=== PATIENT | male | born 1960 | race American Indian/Alaskan Native ===

== ENCOUNTER 2017-03-22 13:16 | Inpatient (IN) | payer MEDICARE, MEDICAID ==
[2017-03-22 13:17] VITALS: BMI 25.8
[2017-03-22] MEDS ORDERED: Piperacillin/Tazobact 3.375 gm 100 ML IVPB STA (13:32)
--- NOTE | 2017-03-22 13:42 | C.PDOC ---
History Of Present Illness 57 y/o male hx HTN, DVT, PE on coumadin sent to ED from senior living for evaluation of worsening cellulitis. Pt states he has had this "for some time." Denies fever, chest pain, SOB or any other complaints. Time Seen by Provider: 03/22/17 13:22 Chief Complaint (Nursing): Lower Extremity Problem/Injury History Per: Patient History/Exam Limitations: no limitations Onset/Duration Of Symptoms: Days Current Symptoms Are (Timing): Still Present Severity: Moderate Recent travel outside of the [place]: No Past Medical History Reviewed: Historical Data, Nursing Documentation, Vital Signs Vital Signs: Last Vital Signs Temp 98.1 F 03/22/17 13:24 Pulse 90 03/22/17 13:24 Resp 14 03/22/17 13:24 BP 124/72 03/22/17 13:24 Pulse Ox 97 03/22/17 13:24 - Medical History PMH: Anemia, Arthritis, Depression, Deep Vein Thrombosis, Fibromyalgia, Osteoporosis, Peripheral Edema, Pulmonary Embolism, Rheumatoid Arthritis [facility]INFUSE [facility] (05/01/14) INSERTION OF INFUSION DEV INTO SUP VENA CAVA, PERC APPROACH (07/05/16) Family History: States: Unknown Family Hx - Social History Hx Tobacco Use: Yes Hx Alcohol Use: No Hx Substance Use: No - Immunization History Hx Tetanus Toxoid Vaccination: Yes Hx Influenza Vaccination: Yes Hx Pneumococcal Vaccination: Yes Review Of Systems Except As Marked, All Systems Reviewed And Found Negative. Constitutional: Negative for: Fever Cardiovascular: Negative for: Chest Pain Respiratory: Negative for: Shortness of Breath Skin: Positive for: Other (lower leg cellulitis) Physical Exam - Physical Exam Appears: Non-toxic, No Acute Distress Skin: Warm, No Rash Head: Atraumatic, Normacephalic Chest: Symmetrical Cardiovascular: Rhythm Regular, No Murmur Respiratory: Normal Breath Sounds, No Rales, No Rhonchi, No Wheezing Gastrointestinal/Abdominal: Normal Exam, Soft, No Tenderness Extremity: Normal ROM, Swelling (+4 edema bilateral lower legs with multiple purulent draining ulcers) Neurological/Psych: Oriented x3, Normal Speech, Normal Cognition ED Course And Treatment - Laboratory Results Result Diagrams: 03/22/17 14:11 03/22/17 14:11 Medical Decision Making Medical Decision Making: lower leg cellultisinfected leg ulcers, will need iv antibiotics, and admission , as pt not improving in senior living Disposition - Disposition Disposition: HOSPITALIZED Disposition Time: 16:28 Condition: FAIR - Clinical Impression Clinical Impression: Cellulitis, Bilateral leg ulcer, Elevated INR - Scribe Statement The provider has reviewed the documentation as recorded by the Sheryl Nichols Provider Attestation: All medical record entries made by the Sheryl were at my direction and personally dictated by me. I have reviewed the chart and agree that the record accurately reflects my personal performance of the history, physical exam, medical decision making, and the department course for this patient. I have also personally directed, reviewed, and agree with the discharge instructions and disposition. Decision To Admit - Pt Status Changed To: Hospital Disposition Of: Inpatient - Admit Certification Admit to Inpatient:: After my assessment, the patient will require hospitalization for at least two midnights. This is because of the severity of symptoms shown, intensity of services needed, and/or the medical risk in this patient being treated as an outpatient. - InPatient: Physician Admission Certification: I certify that this patient requires 2 or more midnights of care for the following reason:: pt will need iv antibiotics for infected leg ulcers, not improving in nurshing home - . Bed Request Type: Regular Admitting Physician: Ced Markham Patient Diagnosis: Cellulitis, Bilateral leg ulcer, Elevated INR
[2017-03-22 14:18] LABS: BASO % 0.4 % (0.0-2.0); EOS % 0.2 % (0.0-4.0); HEMATOCRIT 30.9 % (35.0-51.0); LYMPH # 0.4 K/uL (1.0-4.3); LYMPH % 6.5 % (20.0-40.0); MEAN CORPUSCULAR HEMOGLOBIN 28.2 pg (27.0-31.0); MEAN CORPUSCULAR HGB CONC 32.8 g/dL (33.0-37.0); MEAN PLATELET VOLUME 7.9 fL (7.2-11.7); MONO # 0.4 K/uL (0.0-0.8); MONO % 5.5 % (0.0-10.0); NRBC % 0.1 % (0.0-2.0); PLATELET COUNT 304 K/uL (130-400); RED CELL DISTRIBUTION WIDTH 16.8 % (11.5-14.5); WHITE BLOOD COUNT 6.9 K/uL (4.8-10.8)
[2017-03-22 14:24] LABS: INR 3.2
[2017-03-22 14:25] LABS: CHLORIDE 94 mmol/L (98-107)
[2017-03-22 14:26] LABS: POTASSIUM 4.1 mmol/L (3.6-5.2); SODIUM 137 mmol/L (132-148)
[2017-03-22 14:28] LABS: ALB/GLOB RATIO 0.8 (1.0-2.1); BILIRUBIN,TOTAL 0.7 mg/dL (0.2-1.3); CARBON DIOXIDE 28 mmol/L (22-30); GFR AFRICAN-AMERICAN > 60; TOTAL PROTEIN 7.8 g/dL (6.3-8.3)
[2017-03-22 14:29] LABS: ALKALINE PHOSPHATASE 76 U/L (38-126); ALT/SGPT 28 U/L (21-72); AST/SGOT 24 U/L (17-59); BLOOD UREA NITROGEN 14 mg/dL (9-20); CALCIUM 8.5 mg/dl (8.6-10.4); GLUCOSE,RANDOM 133 mg/dL (75-110)
[2017-03-22 14:57] LABS: EOSINOPHIL 1 % (0-4); NEUTROPHIL 82 % (50-75); REACTIVE LYMPHOCYTES 1 % (0-0); TOTAL CELLS COUNTED 100
[2017-03-22] MEDS ORDERED: Piperacillin/Tazobact 3.375 gm 100 ML IVPB ONE (15:28)
[2017-03-22 16:32] LABS: RBC URINE 2 /hpf (0-3); URINE BILIRUBIN NEGATIVE (NEGATIVE); URINE BLOOD 2+ (NEGATIVE); URINE COLOR Yellow (YELLOW); URINE GLUCOSE (UA) NORMAL (Normal); URINE KETONE NEGATIVE (NEGATIVE); URINE LEUKOCYTE ESTERASE NEG Leu/uL (Negative); URINE PROTEIN NEGATIVE (NEGATIVE); WBC URINE 1 /hpf (0-5)
[2017-03-22] MEDS ORDERED: Vancomycin 1 GM 1 GM/250 ML BAG IVPB ONE (16:54)
[2017-03-22] MEDS: Piperacill/Tazo 3.375gm in Dex 3.375 GM/50 ML BAG IVPB SCH (18:32)
[2017-03-22] MEDS ORDERED: oxyCODONE 5 mg Immediate Release Tab ONE (19:50)
[2017-03-22] MEDS: oxyCODONE 10 mg Immediate Release Tab PO PRN (19:51)
[2017-03-22] MEDS ORDERED: Methadone 40 mg Tab PO SCH (22:00)
[2017-03-23] MEDS: Oxycodone/Acetaminophen 5/325 mg Tab PO PRN ×3 (00:30→15:09)
[2017-03-23] MEDS: Piperacill/Tazo 3.375gm in Dex 3.375 GM/50 ML BAG IVPB SCH ×4 (01:30→19:47)
[2017-03-23] MEDS: oxyCODONE 10 mg Immediate Release Tab PO PRN (04:10)
[2017-03-23] MEDS ORDERED: Home Med 1 UNIT (Vancomycin 1 Gm [Vancomycin 1gm In Normal Saline Addvantage] 1 GM) IVPB SCH (10:00)
[2017-03-23] MEDS: Multiple Vitamins Tab PO SCH (10:28)
[2017-03-23] MEDS ORDERED: oxyCODONE 10 mg Immediate Release Tab PO PRN (10:58)
--- NOTE | 2017-03-23 11:23 | CP.PCM.HP ---
History of Present Illness - History of Present Illness History of Present Illness: 57 years old male patient with past medical history of anemia, depression, DVT, fibromyalgia, osteoporosis, pulmonary embolism on Coumadin, rheumatoid arthritis , was referred [facility] from [facility] for evaluation of the worsening lower limb cellulitis. No fever, nausea, vomiting No chest pain, palpitation, syncope, dyspnea Prior arterial duplex was normal Echo suggestive of normal ejection fraction Present on Admission - Present on Admission Any Indicators Present on Admission: No Past Patient History - Past Medical History & Family History Past Medical History?: Yes - Past Social History Smoking Status: Current Some Days Smoker - CARDIAC Hx Peripheral Edema: Yes - PULMONARY Hx Pulmonary Embolism: Yes - NEUROLOGICAL Hx Neurological Disorder: No - HEENT Hx HEENT Problems: No - RENAL Hx Chronic Kidney Disease: No - ENDOCRINE/METABOLIC Hx Endocrine Disorders: No - HEMATOLOGICAL/ONCOLOGICAL Hx Anemia: Yes - INTEGUMENTARY Hx Dermatological Problems: No - MUSCULOSKELETAL/RHEUMATOLOGICAL Hx Arthritis: Yes Hx Falls: No Hx Osteoporosis: Yes Hx Rheumatoid Arthritis: Yes - GASTROINTESTINAL Hx Gastrointestinal Disorders: Yes Hx Gastroesophageal Reflux: Yes - GENITOURINARY/GYNECOLOGICAL Hx Genitourinary Disorders: Yes Hx Incontinence: Yes - PSYCHIATRIC Hx Depression: Yes Hx Substance Use: No - SURGICAL HISTORY Hx Surgeries: No - ANESTHESIA Hx Anesthesia: No Hx Anesthesia Reactions: No Meds Home Medications: Home Medication List Medication Instructions Recorded Confirmed Type Cefepime IV 2 gm in NS [Maxipime 2 gm IVPB Q12 #1 bag 03/29/17 Rx 2gm] Enoxaparin [Lovenox] 80 mg SC Q12 syr 03/29/17 Rx Methadone 20 mg PO DAILY tab 03/29/17 Rx Methadone 20 mg PO DAILY@1400 tab 03/29/17 Rx Pantoprazole [Protonix EC Tab] 40 mg PO DAILY ect 03/29/17 Rx Vancomycin 1 gm/NS 200 ml 1 gm IVPB DAILY #1 bag 03/29/17 Rx [Vancocin] Allergies/Adverse Reactions: Allergies Allergy/AdvReac Type Severity Reaction Status Date / Time No Known Allergies Allergy Verified 03/22/17 13:28 Physical Exam - Constitutional Appears: Well - Head Exam Head Exam: ATRAUMATIC, NORMAL INSPECTION, NORMOCEPHALIC - Eye Exam Eye Exam: EOMI, Normal appearance, PERRL Pupil Exam: NORMAL ACCOMODATION, PERRL - ENT Exam ENT Exam: Mucous Membranes Moist, Normal Exam - Neck Exam Neck exam: Positive for: Normal Inspection - Respiratory Exam Respiratory Exam: Decreased Breath Sounds - Cardiovascular Exam Cardiovascular Exam: REGULAR RHYTHM, +S1, +S2 - GI/Abdominal Exam GI & Abdominal Exam: Diminished Bowel Sounds, Soft - Rectal Exam Rectal Exam: Deferred Results - Vital Signs Recent Vital Signs: Last Vital Signs Temp 98.5 F 03/23/17 08:00 Pulse 97 H 03/23/17 08:00 Resp 20 03/23/17 08:00 BP 125/90 03/23/17 08:00 Pulse Ox 92 L 03/23/17 08:00 - Labs Result Diagrams: 03/29/17 07:12 03/29/17 07:12 Labs: Laboratory Results - last 24 hr 03/22/17 16:17 Urine Color Yellow Urine Clarity Clear Urine pH 6.0 Ur Specific [place] 1.009 Urine Protein Negative Urine Glucose (UA) Normal Urine Ketones Negative Urine Blood 2+ H Urine Nitrate Negative Urine Bilirubin Negative Urine Urobilinogen 2.0 Ur Leukocyte Esterase Neg Urine WBC (Auto) 1 Urine RBC (Auto) 2 Ur Squamous Epith Cells 1 Assessment & Plan (1) Alcohol abuse Status: Acute (2) Alcohol dependence Status: Acute (3) Anemia Status: Acute (4) Bilateral leg ulcer Status: Acute (5) Cellulitis Status: Acute (6) Closed head injury Status: Acute (7) Elevated INR Status: Acute (8) Eyebrow laceration Status: Acute (9) Finger laceration Status: Acute (10) Joint pain Status: Acute (11) Nailbed laceration, finger Status: Acute (12) Open fracture of tuft of distal phalanx of finger Status: Acute (13) Pulmonary embolism, bilateral Status: Acute Priority: High (14) Recurrent falls Status: Acute (15) Stasis ulcer of left lower extremity Status: Acute (16) Arthritis Status: Chronic (17) COPD (chronic obstructive pulmonary disease) Status: Chronic Priority: Medium (18) Chronic pain Status: Chronic (19) Drug abuse and dependence Status: Chronic Priority: Medium (20) Rheumatoid arthritis flare Status: Chronic Priority: High - Assessment and Plan (Free Text) Plan: Labs and meds noted Cultures awaited IV antibiotics as advised Methadone Elavil ID consult Wound care Labs next a.m.
[2017-03-23 12:05] LABS: BASO # 0.1 K/uL (0.0-0.2); BASO % 1.2 % (0.0-2.0); EOS # 0.2 K/uL (0.0-0.7); LYMPH # 1.3 K/uL (1.0-4.3); LYMPH % 24.9 % (20.0-40.0); MEAN CELL VOLUME 85.9 fL (80.0-94.0); MEAN CORPUSCULAR HEMOGLOBIN 27.9 pg (27.0-31.0); MEAN CORPUSCULAR HGB CONC 32.4 g/dL (33.0-37.0); MEAN PLATELET VOLUME 7.8 fL (7.2-11.7); MONO # 0.6 K/uL (0.0-0.8); MONO % 12.6 % (0.0-10.0); NRBC % 0.2 % (0.0-2.0); RED CELL DISTRIBUTION WIDTH 16.6 % (11.5-14.5); WHITE BLOOD COUNT 5.1 K/uL (4.8-10.8)
[2017-03-23 12:19] LABS: CHLORIDE 92 mmol/L (98-107); POTASSIUM 3.4 mmol/L (3.6-5.2); SODIUM 142 mmol/L (132-148)
[2017-03-23 12:21] LABS: GFR AFRICAN-AMERICAN > 60
[2017-03-23 12:22] LABS: ALB/GLOB RATIO 0.8 (1.0-2.1); ALKALINE PHOSPHATASE 80 U/L (38-126); ALT/SGPT 26 U/L (21-72); AST/SGOT 19 U/L (17-59); BILIRUBIN,TOTAL 0.7 mg/dL (0.2-1.3); BLOOD UREA NITROGEN 9 mg/dL (9-20); CALCIUM 8.8 mg/dl (8.6-10.4); CARBON DIOXIDE 34 mmol/L (22-30); GLUCOSE,RANDOM 103 mg/dL (75-110); TOTAL PROTEIN 7.9 g/dL (6.3-8.3)
--- NOTE | 2017-03-23 12:38 | CP.PCM.CON ---
History of Present Illness - History of Present Illness History of Present Illness: 57 y/o male hx HTN, DVT, PE on coumadin sent to ED from [facility] for evaluation of worsening cellulitis. Pt states he has had this "for some time." Denies fever, chest pain, has bilateral stasis ulcers and cellulitis right greater than Left IV antibiotics started cultures pending - Medical History PMH: Anemia, Arthritis, Depression, Deep Vein Thrombosis, Fibromyalgia, Osteoporosis, Peripheral Edema, Pulmonary Embolism, Rheumatoid Arthritis Review of Systems - Constitutional Constitutional: As Per HPI - EENT Eyes: absent: As Per HPI, Blind Spots, Blurred Vision, Change in Vision, Decreased Night Vision, Diplopia, Discharge, Dry Eye, Exophthalmos, Floaters, Irritation, Itchy Eyes, Loss of Peripheral Vision, Pain, Photophobia, Requires Corrective Lenses, Sees Flashes, Spots in Vision, Tunnel Vision, Other Visual Disturbances, Loss of Vision, Other Ears: absent: As Per HPI, Decreased Hearing, Ear Discharge, Ear Pain, Tinnitus, Abnormal Hearing, Disequilibrium, Dizziness, Other Nose/Mouth/Throat: absent: As Per HPI, Epistaxis, Nasal Congestion, Nasal Discharge, Nasal Obstruction, Nasal Trauma, Nose Pain, Post Nasal Drip, Sinus Pain, Sinus Pressure, Bleeding Gums, Change in Voice, Dental Pain, Dry Mouth, Dysphagia, Halitosis, Hoarsness, Lip Swelling, Mouth Lesions, Mouth Pain, Odynophagia, Sore Throat, Throat Swelling, Tongue Swelling, Facial Pain, Neck Pain, Neck Mass, Other - Cardiovascular Cardiovascular: absent: As Per HPI, Acrocyanosis, Chest Pain, Chest Pain at Rest , Chest Pain with Activity, Claudication, Diaphoresis, Dyspnea, Dyspnea on Exertion, Edema, Irregular Heart Rhythm, Pain Radiating to Arm/Neck/Jaw, Leg Edema, Leg Ulcers, Lightheadedness, Orthopnea, Palpitations, Paroxysmal Nocturnal Dyspnea, Pedal Edema, Radiating Pain, Rapid Heart Rate, Slow Heart Rate, Syncope, Other - Respiratory Respiratory: absent: As Per HPI, Cough, Dyspnea, Hemoptysis, Dyspnea on Exertion , Wheezing, Snoring, Stridor, Pain on Inspiration, Chest Congestion, Excessive Mucous Production, Change in Mucous Color, Pain with Coughing, Other - Gastrointestinal Gastrointestinal: absent: As Per HPI, Abdominal Pain, Belching, Bloating, Change in Bowel Habits, Change in Stool Character, Coffee Ground Emesis, Constipation, Cramping, Diarrhea, Dyspepsia, Dysphagia, Early Satiety, Excessive Flatus, Fecal Incontinence, Heartburn, Hematemesis, Hematochezia, Loose Stools, Melena, Nausea, Odynophagia, Temesmus, Vomiting, Other - Genitourinary Genitourinary: absent: As Per HPI, Change in Urinary Stream, Difficulty Urinating, Dysuria, Flank Pain, Hematuria, Pyuria, Nocturia, Urinary Incontinence, Urinary Frequency, Urinary Hesitance, Urinary Urgency, Voiding Freq/Small Amts, Freq UTI, Hx Renal/Bladder Calculi, Hx /Renal Surgery, Bladder Distension, Other - Musculoskeletal Musculoskeletal: As Per HPI - Integumentary Integumentary: As Per HPI, Skin Pain, Wounds - Neurological Neurological: absent: As Per HPI, Abnormal Gait, Abnormal Hearing, Abnormal Movements, Abnormal Speech, Behavioral Changes, Burning Sensations, Confusion, Convulsions, Disequilibrium, Dizziness, Numbness, Focal Weakness, Frequent Falls , Headaches, Lack of Coordination, Loss of Vision, Memory Loss, Paresthesias, Radicular Pain, Restless Legs, Sensory Deficit, Syncope, Tingling, Tremor, Vertigo, Weakness, Other Visual Disturbances, Other - Psychiatric Psychiatric: absent: As Per HPI, Abnormal Sleep Pattern, Anhedonia, Anxiety, Auditory Hallucinations, Behavioral Changes, Change in Appetite, Change in Libido, Confusion, Depression, Difficulty Concentrating, Hallucinations, Homicidal Ideation, Hopelessness, Irritability, Memory Loss, Mood Swings, Panic Attacks, Paranoia, Suicidal Ideation, Visual Hallucinations, Tactile Hallucinations, Other - Endocrine Endocrine: absent: As Per HPI, Change in Body Appearance, Change in Libido, Cold Intolorance, Deepening of Voice, Excessive Sweating, Fatigue, Flushing, Heat Intolorance, Increase in Ring/Shoe/Hat Size, Palpitations, Polydipsia, Polyphagia, Polyuria, Other Past Patient History - Past Medical History & Family History Past Medical History?: Yes - Past Social History Smoking Status: Current Some Days Smoker - CARDIAC Hx Peripheral Edema: Yes - PULMONARY Hx Pulmonary Embolism: Yes - NEUROLOGICAL Hx Neurological Disorder: No - HEENT Hx HEENT Problems: No - RENAL Hx Chronic Kidney Disease: No - ENDOCRINE/METABOLIC Hx Endocrine Disorders: No - HEMATOLOGICAL/ONCOLOGICAL Hx Anemia: Yes - INTEGUMENTARY Hx Dermatological Problems: No - MUSCULOSKELETAL/RHEUMATOLOGICAL Hx Arthritis: Yes Hx Falls: No Hx Osteoporosis: Yes Hx Rheumatoid Arthritis: Yes - GASTROINTESTINAL Hx Gastrointestinal Disorders: Yes Hx Gastroesophageal Reflux: Yes - GENITOURINARY/GYNECOLOGICAL Hx Genitourinary Disorders: Yes Hx Incontinence: Yes - PSYCHIATRIC Hx Depression: Yes Hx Substance Use: No - SURGICAL HISTORY Hx Surgeries: No - ANESTHESIA Hx Anesthesia: No Hx Anesthesia Reactions: No Meds Allergies/Adverse Reactions: Allergies Allergy/AdvReac Type Severity Reaction Status Date / Time No Known Allergies Allergy Verified 03/22/17 13:28 - Medications Medications: Current Medications Amitriptyline HCl (Elavil) 100 mg PO DAILY [facility] Last Admin: 03/23/17 10:28 Dose: 100 mg Cyclobenzaprine HCl (Flexeril) 10 mg PO Q8 [facility] Gabapentin (Neurontin) 300 mg PO TID [facility] Last Admin: 03/23/17 10:28 Dose: 300 mg Piperacillin Sod/Tazobactam Sod (Zosyn 3.375 Gm Iv Premix) 3.375 gm in 50 mls @ 100 mls/hr IVPB Q6H [facility] Last Admin: 03/23/17 08:44 Dose: 100 mls/hr Vancomycin/Sodium Chloride (Vancocin) 1 gm in 200 mls @ 133 mls/hr IVPB Q24H [facility] Stop: 03/28/17 17:01 Methadone HCl (Methadone) 20 mg PO 1400 [facility] Methadone HCl (Methadone) 30 mg PO 0600 [facility] Last Admin: 03/23/17 05:31 Dose: 30 mg Methadone HCl (Methadone) 30 mg PO 2200 [facility] Last Admin: 03/22/17 21:58 Dose: 30 mg Multivitamins (Hexavitamin) 1 tab PO DAILY [facility] Last Admin: 03/23/17 10:28 Dose: 1 tab Oxycodone HCl (Oxycodone Immediate Release Tab) 10 mg PO Q8 PRN PRN Reason: Pain, severe (8-10) Oxycodone/Acetaminophen (Percocet 5/325 Mg Tab) 1 tab PO Q6 PRN PRN Reason: Pain, moderate (4-7) Stop: 03/26/17 11:00 Prednisone (Prednisone Tab) 10 mg PO DAILY [facility] Last Admin: 03/23/17 10:28 Dose: 10 mg Venlafaxine HCl (Effexor Xr) 37.5 mg PO DAILY [facility] Warfarin Sodium (Coumadin) 3.5 mg PO DAILY [facility] Physical Exam - Constitutional Appears: Non-toxic, Chronically Ill - Head Exam Head Exam: ATRAUMATIC, NORMAL INSPECTION, NORMOCEPHALIC - Eye Exam Eye Exam: EOMI, PERRL. absent: Scleral icterus - ENT Exam ENT Exam: Mucous Membranes Dry, Normal External Ear Exam - Neck Exam Neck exam: Negative for: Lymphadenopathy, Thyromegaly - Respiratory Exam Respiratory Exam: Decreased Breath Sounds, Clear to Auscultation Bilateral - Cardiovascular Exam Cardiovascular Exam: REGULAR RHYTHM, +S1, +S2 - GI/Abdominal Exam GI & Abdominal Exam: Diminished Bowel Sounds, Soft. absent: Tenderness - Rectal Exam Rectal Exam: Deferred - Exam Exam: NORMAL INSPECTION - Extremities Exam Extremities exam: Positive for: pedal edema, tenderness. Negative for: calf tenderness, pedal pulses present - Back Exam Back exam: absent: CVA tenderness (L), CVA tenderness (R), paraspinal tenderness - Neurological Exam Neurological exam: Alert, CN II-XII Intact, Oriented x3, Reflexes Normal - Psychiatric Exam Psychiatric exam: Normal Mood - Skin Skin Exam: Dry Results - Vital Signs Recent Vital Signs: Last Vital Signs Temp 98.5 F 03/23/17 08:00 Pulse 97 H 03/23/17 08:00 Resp 20 03/23/17 08:00 BP 125/90 03/23/17 08:00 Pulse Ox 92 L 03/23/17 08:00 - Labs Result Diagrams: 03/23/17 11:56 03/23/17 11:56 Labs: Laboratory Results - last 24 hr 03/22/17 03/23/17 03/23/17 16:17 11:56 11:56 WBC 5.1 RBC 3.96 L Hgb 11.0 L Hct 34.0 L MCV 85.9 MCH 27.9 MCHC 32.4 L RDW 16.6 H Plt Count 366 MPV 7.8 Neut % (Auto) 58.3 Lymph % (Auto) 24.9 [place] % (Auto) 12.6 H Eos % (Auto) 3.0 Baso % (Auto) 1.2 Neut # 3.0 Lymph # 1.3 [place] # 0.6 Eos # 0.2 Baso # 0.1 Sodium 142 Potassium 3.4 L Chloride 92 L Carbon Dioxide 34 H Anion Gap 19 BUN 9 Creatinine 0.8 Est GFR ( Amer) > 60 Est GFR (Non-Af Amer) > 60 Random Glucose 103 Calcium 8.8 Total Bilirubin 0.7 AST 19 ALT 26 Alkaline Phosphatase 80 Total Protein 7.9 Albumin 3.5 Globulin 4.3 H Albumin/Globulin Ratio 0.8 L Urine Color Yellow Urine Clarity Clear Urine pH 6.0 Ur Specific [place] 1.009 Urine Protein Negative Urine Glucose (UA) Normal Urine Ketones Negative Urine Blood 2+ H Urine Nitrate Negative Urine Bilirubin Negative Urine Urobilinogen 2.0 Ur Leukocyte Esterase Neg Urine WBC (Auto) 1 Urine RBC (Auto) 2 Ur Squamous Epith Cells 1 Assessment & Plan (1) Bilateral leg ulcer Status: Acute (2) Cellulitis Status: Acute (3) Stasis ulcer of left lower extremity Status: Acute - Assessment and Plan (Free Text) Assessment: await cultures cont iv antibiotics
[2017-03-23] MEDS: Venlafaxine 37.5 mg ER Cap PO SCH (12:59)
--- NOTE | 2017-03-23 13:12 | CP.PCM.PN ---
Subjective - Date & Time of Evaluation Date of Evaluation: 03/23/17 Time of Evaluation: 09:45 - Subjective Subjective: PGY3 Medicine Note - Dr. Rocio Markham's service: Patient seen and examined at bedside this AM. Patient reports severe body pain from arthritis all over his body. Patient says his legs look much better and feel much better. Patient denies fever, chills, chest pain, SOB. Objective - Vital Signs/Intake and Output Vital Signs (last 24 hours): Temp Pulse Resp BP Pulse Ox 98.5 F 97 H 20 125/90 92 L 03/23/17 08:00 03/23/17 08:00 03/23/17 08:00 03/23/17 08:00 03/23/17 08:00 Intake and Output: 03/23/17 03/23/17 06:59 18:59 Intake Total 290 Output Total 400 Balance -110 - Medications Medications: Current Medications Amitriptyline HCl (Elavil) 100 mg PO DAILY [facility] Last Admin: 03/23/17 10:28 Dose: 100 mg Cyclobenzaprine HCl (Flexeril) 10 mg PO Q8 [facility] Gabapentin (Neurontin) 300 mg PO TID [facility] Last Admin: 03/23/17 10:28 Dose: 300 mg Piperacillin Sod/Tazobactam Sod (Zosyn 3.375 Gm Iv Premix) 3.375 gm in 50 mls @ 100 mls/hr IVPB Q6H [facility] Last Admin: 03/23/17 08:44 Dose: 100 mls/hr Vancomycin/Sodium Chloride (Vancocin) 1 gm in 200 mls @ 133 mls/hr IVPB Q24H [facility] Stop: 03/28/17 17:01 Methadone HCl (Methadone) 20 mg PO 1400 [facility] Methadone HCl (Methadone) 30 mg PO 0600 [facility] Last Admin: 03/23/17 05:31 Dose: 30 mg Methadone HCl (Methadone) 30 mg PO 2200 [facility] Last Admin: 03/22/17 21:58 Dose: 30 mg Multivitamins (Hexavitamin) 1 tab PO DAILY [facility] Last Admin: 03/23/17 10:28 Dose: 1 tab Oxycodone/Acetaminophen (Percocet 5/325 Mg Tab) 1 tab PO Q6 PRN PRN Reason: Pain, moderate (4-7) Stop: 03/26/17 11:00 Prednisone (Prednisone Tab) 10 mg PO DAILY [facility] Last Admin: 03/23/17 10:28 Dose: 10 mg Venlafaxine HCl (Effexor Xr) 37.5 mg PO DAILY [facility] Warfarin Sodium (Coumadin) 3.5 mg PO DAILY [facility] - Labs Labs: 03/23/17 11:56 03/23/17 11:56 PT 38.0 SECONDS (9.7-12.2) H* 03/22/17 14:11 INR 3.2 03/22/17 14:11 APTT 42 SECONDS (21-34) H 03/22/17 14:11 - Constitutional Appears: Non-toxic, No Acute Distress - Head Exam Head Exam: NORMAL INSPECTION - Eye Exam Eye Exam: EOMI - ENT Exam ENT Exam: Mucous Membranes Moist - Respiratory Exam Respiratory Exam: Clear to Ausculation Bilateral, NORMAL BREATHING PATTERN. absent: Rales, Rhonchi, Wheezes - Cardiovascular Exam Cardiovascular Exam: REGULAR RHYTHM, +S1, +S2. absent: Gallop, Rubs, Murmur - GI/Abdominal Exam GI & Abdominal Exam: Soft, Normal Bowel Sounds. absent: Tenderness - Extremities Exam Additional comments: b/l leg swelling with ulcers wrapped in white gauze - Neurological Exam Neurological Exam: Alert, Awake, Oriented x3 - Psychiatric Exam Psychiatric exam: Normal Affect, Normal Mood - Skin Skin Exam: Normal Color, Warm Assessment and Plan - Assessment and Plan (Free Text) Assessment: Cellulitis Wound care consult - help appreciated ID consult - Dr. Oliver - help appreciated F/U blood culture and wound culture F/U arterial duplex scan Zosyn 3.375mg IVPB Q6H Vancomycin 1gm IVPB Q24H [facility] Cardio consult - Dr. Arnett - help appreciated History of PE Continue Warfarin 3.5mg PO daily F/U INRs Arthritis Oxycodone/Acetaminophen 5/325mg PO Q6H PRN pain, moderate Prednisone 10mg PO daily Methadone 20mg PO 1400 Methadone 30mg PO 0600 Methadone 30mg PO 2200 [facility] Elavil 100mg PO daily Gabapentin 300mg PO TID Prophylaxis Lovenox 40mg SC daily Protonix 40mg PO daily All management per Dr. Rocio Markham
[2017-03-23] MEDS ORDERED: Potassium Chloride 20 mEq ER Tab PO STA (15:22)
[2017-03-23] MEDS: Vancomycin 1 gm/NS 200 ml 1 GM/200 ML BAG IVPB SCH (17:54)
--- NOTE | 2017-03-23 22:49 | CP.PCM.CON ---
History of Present Illness - History of Present Illness History of Present Illness: Patient seen and evaluated Consulted for foot ulcer Patient denies hx of chest pain, dyspnea and leg claudication Prior Arterial duplex normal ECHO: Normal EF Most likely venous ulcer (H/O DVT on coumadin) Past Patient History - Past Medical History & Family History Past Medical History?: Yes - Past Social History Smoking Status: Current Some Days Smoker - CARDIAC Hx Peripheral Edema: Yes - PULMONARY Hx Pulmonary Embolism: Yes - NEUROLOGICAL Hx Neurological Disorder: No - HEENT Hx HEENT Problems: No - RENAL Hx Chronic Kidney Disease: No - ENDOCRINE/METABOLIC Hx Endocrine Disorders: No - HEMATOLOGICAL/ONCOLOGICAL Hx Anemia: Yes - INTEGUMENTARY Hx Dermatological Problems: No - MUSCULOSKELETAL/RHEUMATOLOGICAL Hx Arthritis: Yes Hx Falls: No Hx Osteoporosis: Yes Hx Rheumatoid Arthritis: Yes - GASTROINTESTINAL Hx Gastrointestinal Disorders: Yes Hx Gastroesophageal Reflux: Yes - GENITOURINARY/GYNECOLOGICAL Hx Genitourinary Disorders: Yes Hx Incontinence: Yes - PSYCHIATRIC Hx Depression: Yes Hx Substance Use: No - SURGICAL HISTORY Hx Surgeries: No - ANESTHESIA Hx Anesthesia: No Hx Anesthesia Reactions: No Meds Allergies/Adverse Reactions: Allergies Allergy/AdvReac Type Severity Reaction Status Date / Time No Known Allergies Allergy Verified 03/22/17 13:28 - Medications Medications: Current Medications Amitriptyline HCl (Elavil) 100 mg PO DAILY [facility] Last Admin: 03/23/17 10:28 Dose: 100 mg Cyclobenzaprine HCl (Flexeril) 10 mg PO Q8 [facility] Last Admin: 03/23/17 21:24 Dose: 10 mg Gabapentin (Neurontin) 300 mg PO TID [facility] Last Admin: 03/23/17 17:46 Dose: 300 mg Piperacillin Sod/Tazobactam Sod (Zosyn 3.375 Gm Iv Premix) 3.375 gm in 50 mls @ 100 mls/hr IVPB Q6H [facility] Last Admin: 03/23/17 19:47 Dose: 100 mls/hr Vancomycin/Sodium Chloride (Vancocin) 1 gm in 200 mls @ 133 mls/hr IVPB Q24H [facility] Stop: 03/28/17 17:01 Last Admin: 03/23/17 17:54 Dose: 133 mls/hr Methadone HCl (Methadone) 20 mg PO 1400 [facility] Last Admin: 03/23/17 13:03 Dose: 20 mg Methadone HCl (Methadone) 30 mg PO 0600 [facility] Last Admin: 03/23/17 05:31 Dose: 30 mg Methadone HCl (Methadone) 30 mg PO 2200 [facility] Last Admin: 03/23/17 21:25 Dose: 30 mg Multivitamins (Hexavitamin) 1 tab PO DAILY [facility] Last Admin: 03/23/17 10:28 Dose: 1 tab Oxycodone/Acetaminophen (Percocet 5/325 Mg Tab) 1 tab PO Q6 PRN PRN Reason: Pain, moderate (4-7) Stop: 03/26/17 11:00 Last Admin: 03/23/17 15:09 Dose: 1 tab Pantoprazole Sodium (Protonix Ec Tab) 40 mg PO DAILY [facility] Prednisone (Prednisone Tab) 10 mg PO DAILY [facility] Last Admin: 03/23/17 10:28 Dose: 10 mg Venlafaxine HCl (Effexor Xr) 37.5 mg PO DAILY [facility] Last Admin: 03/23/17 12:59 Dose: 37.5 mg Results - Vital Signs Recent Vital Signs: Last Vital Signs Temp 98.0 F 03/23/17 15:00 Pulse 100 H 03/23/17 15:00 Resp 20 03/23/17 15:00 BP 132/82 03/23/17 15:00 Pulse Ox 95 03/23/17 15:00 - Labs Result Diagrams: 03/23/17 11:56 03/23/17 11:56 Labs: Laboratory Results - last 24 hr 03/23/17 03/23/17 11:56 11:56 WBC 5.1 RBC 3.96 L Hgb 11.0 L Hct 34.0 L MCV 85.9 MCH 27.9 MCHC 32.4 L RDW 16.6 H Plt Count 366 MPV 7.8 Neut % (Auto) 58.3 Lymph % (Auto) 24.9 Payne % (Auto) 12.6 H Eos % (Auto) 3.0 Baso % (Auto) 1.2 Neut # 3.0 Lymph # 1.3 Payne # 0.6 Eos # 0.2 Baso # 0.1 Sodium 142 Potassium 3.4 L Chloride 92 L Carbon Dioxide 34 H Anion Gap 19 BUN 9 Creatinine 0.8 Est GFR ( Amer) > 60 Est GFR (Non-Af Amer) > 60 Random Glucose 103 Calcium 8.8 Total Bilirubin 0.7 AST 19 ALT 26 Alkaline Phosphatase 80 Total Protein 7.9 Albumin 3.5 Globulin 4.3 H Albumin/Globulin Ratio 0.8 L
[2017-03-24] MEDS: Piperacill/Tazo 3.375gm in Dex 3.375 GM/50 ML BAG IVPB SCH ×4 (01:45→20:22)
[2017-03-24] MEDS: Oxycodone/Acetaminophen 5/325 mg Tab PO PRN ×2 (02:18→22:01)
[2017-03-24 07:17] LABS: BASO # 0.1 K/uL (0.0-0.2); BASO % 0.9 % (0.0-2.0); EOS # 0.1 K/uL (0.0-0.7); EOS % 2.2 % (0.0-4.0); LYMPH # 1.7 K/uL (1.0-4.3); LYMPH % 28.5 % (20.0-40.0); MEAN CELL VOLUME 85.1 fL (80.0-94.0); MEAN CORPUSCULAR HEMOGLOBIN 27.9 pg (27.0-31.0); MEAN CORPUSCULAR HGB CONC 32.7 g/dL (33.0-37.0); MEAN PLATELET VOLUME 7.7 fL (7.2-11.7); MONO # 0.6 K/uL (0.0-0.8); MONO % 9.6 % (0.0-10.0); RED CELL DISTRIBUTION WIDTH 16.7 % (11.5-14.5); WHITE BLOOD COUNT 6.1 K/uL (4.8-10.8)
[2017-03-24 07:20] LABS: INR 3.9
[2017-03-24 07:27] LABS: CHLORIDE 96 mmol/L (98-107); SODIUM 140 mmol/L (132-148)
[2017-03-24 07:28] LABS: POTASSIUM 3.5 mmol/L (3.6-5.2)
[2017-03-24 07:30] LABS: ALB/GLOB RATIO 0.8 (1.0-2.1); ALKALINE PHOSPHATASE 82 U/L (38-126); ALT/SGPT 26 U/L (21-72); AST/SGOT 17 U/L (17-59); BILIRUBIN,TOTAL 0.5 mg/dL (0.2-1.3); BLOOD UREA NITROGEN 9 mg/dL (9-20); CARBON DIOXIDE 30 mmol/L (22-30); GFR AFRICAN-AMERICAN > 60; GLUCOSE,RANDOM 96 mg/dL (75-110); TOTAL PROTEIN 7.9 g/dL (6.3-8.3)
[2017-03-24 07:31] LABS: CALCIUM 8.4 mg/dl (8.6-10.4)
[2017-03-24] MEDS ORDERED: Potassium Chloride 20 mEq ER Tab PO STA (09:40)
[2017-03-24] MEDS: Multiple Vitamins Tab PO SCH (09:53)
[2017-03-24] MEDS: Pantoprazole 40 mg EC Tab PO SCH (09:53)
[2017-03-24] MEDS: Venlafaxine 37.5 mg ER Cap PO SCH (09:53)
--- NOTE | 2017-03-24 14:57 | VASCLAB ---
PROCEDURE: HISTORY: pvd COMPARISON: None available. TECHNIQUE: Grayscale and duplex Doppler evaluation of the bilateral common femoral, femoral, profunda femoral, popliteal, posterior tibial, anterior tibial and dorsalis pedis arteries was performed. Report prepared by VALDEZ Morales, RVT FINDINGS: RIGHT LOWER EXTREMITY: * Common Femoral Artery: Peak Systolic Velocity - 110: Doppler Waveform: Triphasic.: Plaque description - * Profunda Femoral Artery: Peak Systolic Velocity - 77: Doppler Waveform: Triphasic.: Plaque description - * Femoral Artery o Proximal Segment: Peak Systolic Velocity - 132: Doppler Waveform: Triphasic.: Plaque description - o Middle Segment: Peak Systolic Velocity - 126: Doppler Waveform: Triphasic.: Plaque description - o Distal Segment: Peak Systolic Velocity - 94: Doppler Waveform: Triphasic.: Plaque description - * Popliteal Artery o Proximal Segment: Peak Systolic Velocity - 68: Doppler Waveform: Triphasic.: Plaque description - o Middle Segment: Peak Systolic Velocity - 76: Doppler Waveform: Triphasic.: Plaque description - o Distal Segment: Peak Systolic Velocity - 102: Doppler Waveform: Triphasic.: Plaque description - * Posterior Tibial Artery: Peak Systolic Velocity - : Doppler Waveform: : Plaque description - * Anterior Tibial Artery: Peak Systolic Velocity - 69: Doppler Waveform: Triphasic.: Plaque description - * Dorsalis Pedis Artery: Peak Systolic Velocity - : Doppler Waveform: : Plaque description - LEFT LOWER EXTREMITY: * Common Femoral Artery: Peak Systolic Velocity - 156: Doppler Waveform: Triphasic.: Plaque description - * Profunda Femoral Artery: Peak Systolic Velocity - : Doppler Waveform: : Plaque description - * Femoral Artery o Proximal Segment: Peak Systolic Velocity - 135: Doppler Waveform: Triphasic.: Plaque description - o Middle Segment: Peak Systolic Velocity - 72: Doppler Waveform: Triphasic.: Plaque description - o Distal Segment: Peak Systolic Velocity - 216: Doppler Waveform: Triphasic.: Plaque description - * Popliteal Artery o Proximal Segment: Peak Systolic Velocity - 115: Doppler Waveform: Triphasic.: Plaque description - o Middle Segment: Peak Systolic Velocity - 96: Doppler Waveform: Triphasic.: Plaque description - o Distal Segment: Peak Systolic Velocity - 106: Doppler Waveform: Triphasic.: Plaque description - * Posterior Tibial Artery: Peak Systolic Velocity - : Doppler Waveform: : Plaque description - * Anterior Tibial Artery: Peak Systolic Velocity - 106: Doppler Waveform: Triphasic.: Plaque description - * Dorsalis Pedis Artery: Peak Systolic Velocity - : Doppler Waveform: : Plaque description - OTHER FINDINGS: Unable to image bilateral posterior tibial and dorsalis pedis arteries due to severe swelling and bandage on legs. IMPRESSION: RIGHT: There is no evidence of hemodynamically significant arterial insufficiency in both lower extremities. LEFT: 50-75% stenosis of the left distal superficial femoral artery. Recommend CT angiogram.
--- NOTE | 2017-03-24 16:14 | CP.PCM.PN ---
Subjective - Date & Time of Evaluation Date of Evaluation: 03/24/17 Time of Evaluation: 16:11 - Subjective Subjective: PGY2 progress note for Dr. Markham Pt is seen and examined at bedside. No acute events overnight. Patient continues to c/o LE pain. Patient denies having any CP, SOB, abd pain, N/V/D/ C. patient is tolerating diet. 12 point ROS are negative except for the above mentioned. Objective - Vital Signs/Intake and Output Vital Signs (last 24 hours): Temp Pulse Resp BP Pulse Ox 98.1 F 78 20 125/84 96 03/24/17 07:51 03/24/17 07:51 03/24/17 07:51 03/24/17 07:51 03/24/17 07:51 Intake and Output: 03/24/17 03/24/17 06:59 18:59 Intake Total 300 460 Output Total 650 550 Balance -350 -90 - Medications Medications: Current Medications Amitriptyline HCl (Elavil) 100 mg PO DAILY [facility] Last Admin: 03/24/17 09:53 Dose: 100 mg Cyclobenzaprine HCl (Flexeril) 10 mg PO Q8 [facility] Last Admin: 03/24/17 13:24 Dose: 10 mg Gabapentin (Neurontin) 300 mg PO TID [facility] Last Admin: 03/24/17 13:24 Dose: 300 mg Piperacillin Sod/Tazobactam Sod (Zosyn 3.375 Gm Iv Premix) 3.375 gm in 50 mls @ 100 mls/hr IVPB Q6H [facility] Last Admin: 03/24/17 13:24 Dose: 100 mls/hr Vancomycin/Sodium Chloride (Vancocin) 1 gm in 200 mls @ 133 mls/hr IVPB Q24H [facility] Stop: 03/28/17 17:01 Last Admin: 03/23/17 17:54 Dose: 133 mls/hr Methadone HCl (Methadone) 20 mg PO 1400 [facility] Last Admin: 03/24/17 13:24 Dose: 20 mg Methadone HCl (Methadone) 30 mg PO 0600 [facility] Last Admin: 03/24/17 06:20 Dose: 30 mg Methadone HCl (Methadone) 30 mg PO 2200 [facility] Last Admin: 03/23/17 21:25 Dose: 30 mg Multivitamins (Hexavitamin) 1 tab PO DAILY [facility] Last Admin: 03/24/17 09:53 Dose: 1 tab Oxycodone/Acetaminophen (Percocet 5/325 Mg Tab) 1 tab PO Q6 PRN PRN Reason: Pain, moderate (4-7) Stop: 03/26/17 11:00 Last Admin: 03/24/17 02:18 Dose: 1 tab Pantoprazole Sodium (Protonix Ec Tab) 40 mg PO DAILY [facility] Last Admin: 03/24/17 09:53 Dose: 40 mg Prednisone (Prednisone Tab) 10 mg PO DAILY [facility] Last Admin: 03/24/17 09:53 Dose: 10 mg Venlafaxine HCl (Effexor Xr) 37.5 mg PO DAILY [facility] Last Admin: 03/24/17 09:53 Dose: 37.5 mg - Labs Labs: 03/24/17 07:01 03/24/17 07:01 PT 46.2 SECONDS (9.7-12.2) H* D 03/24/17 07:01 INR 3.9 03/24/17 07:01 APTT 42 SECONDS (21-34) H 03/22/17 14:11 - Constitutional Appears: Non-toxic, No Acute Distress - Head Exam Head Exam: ATRAUMATIC - Eye Exam Eye Exam: EOMI - ENT Exam ENT Exam: Mucous Membranes Moist - Respiratory Exam Respiratory Exam: Clear to Ausculation Bilateral, NORMAL BREATHING PATTERN. absent: Accessory Muscle Use, Rales, Rhonchi, Wheezes, Respiratory Distress - Cardiovascular Exam Cardiovascular Exam: REGULAR RHYTHM, +S1, +S2. absent: Gallop, Rubs, Murmur - GI/Abdominal Exam GI & Abdominal Exam: Soft, Normal Bowel Sounds. absent: Distended, Firm, Guarding, Rigid, Tenderness, Organomegaly - Extremities Exam Extremities Exam: absent: Pedal Edema, Tenderness - Neurological Exam Neurological Exam: Alert, Awake, Oriented x3 - Psychiatric Exam Psychiatric exam: Normal Affect, Normal Mood - Skin Skin Exam: Dry, Intact, Normal Color, Warm Assessment and Plan - Assessment and Plan (Free Text) Assessment: 57 year old male with past medical history of HTN, DVT, PE on coumadin, fibromyalgia, OA, and RA is admitted for worsening cellulitis of LE Cellulitis Wound care consult - help appreciated ID consult - Dr. Oliver - help appreciated Wound cultures grew gram negative maddison, gram positive cocci Arterial duplex scan shows left side 50-75% stenosis of left distal superficial femoral artery Zosyn 3.375mg IVPB Q6H Vancomycin 1gm IVPB Q24H [facility] Cardio consult - Dr. Arnett - help appreciated Cardio recommends pharmacological stress test in am, echo in am and CTA of abdominal aorta and LE B/L NPO past midnight except for medications History of PE INR today is 3.9. Will hold warfarin for tonight and resume on 3 mg tomorrow night Arthritis Oxycodone/Acetaminophen 5/325mg PO Q6H PRN pain, moderate Prednisone 10mg PO daily Methadone 20mg PO 1400 Methadone 30mg PO 0600 Methadone 30mg PO 2200 [facility] Elavil 100mg PO daily Gabapentin 300mg PO TID Prophylaxis Lovenox 40mg SC daily Protonix 40mg PO daily All management per Dr. Rocio Markham
[2017-03-24] MEDS: Vancomycin 1 gm/NS 200 ml 1 GM/200 ML BAG IVPB SCH (17:33)
--- NOTE | 2017-03-24 17:39 | CP.PCM.PN ---
Subjective - Date & Time of Evaluation Date of Evaluation: 03/24/17 Time of Evaluation: 10:00 - Subjective Subjective: clinically same Objective - Vital Signs/Intake and Output Vital Signs (last 24 hours): Temp Pulse Resp BP Pulse Ox 98.1 F 78 20 125/84 96 03/24/17 07:51 03/24/17 07:51 03/24/17 07:51 03/24/17 07:51 03/24/17 07:51 Intake and Output: 03/24/17 03/24/17 06:59 18:59 Intake Total 300 460 Output Total 650 550 Balance -350 -90 - Medications Medications: Current Medications Amitriptyline HCl (Elavil) 100 mg PO DAILY [facility] Last Admin: 03/24/17 09:53 Dose: 100 mg Cyclobenzaprine HCl (Flexeril) 10 mg PO Q8 [facility] Last Admin: 03/24/17 13:24 Dose: 10 mg Gabapentin (Neurontin) 300 mg PO TID [facility] Last Admin: 03/24/17 17:33 Dose: 300 mg Piperacillin Sod/Tazobactam Sod (Zosyn 3.375 Gm Iv Premix) 3.375 gm in 50 mls @ 100 mls/hr IVPB Q6H [facility] Last Admin: 03/24/17 13:24 Dose: 100 mls/hr Vancomycin/Sodium Chloride (Vancocin) 1 gm in 200 mls @ 133 mls/hr IVPB Q24H [facility] Stop: 03/28/17 17:01 Last Admin: 03/24/17 17:33 Dose: 133 mls/hr Methadone HCl (Methadone) 20 mg PO 1400 [facility] Last Admin: 03/24/17 13:24 Dose: 20 mg Methadone HCl (Methadone) 30 mg PO 0600 [facility] Last Admin: 03/24/17 06:20 Dose: 30 mg Methadone HCl (Methadone) 30 mg PO 2200 [facility] Last Admin: 03/23/17 21:25 Dose: 30 mg Multivitamins (Hexavitamin) 1 tab PO DAILY [facility] Last Admin: 03/24/17 09:53 Dose: 1 tab Oxycodone/Acetaminophen (Percocet 5/325 Mg Tab) 1 tab PO Q6 PRN PRN Reason: Pain, moderate (4-7) Stop: 03/26/17 11:00 Last Admin: 03/24/17 02:18 Dose: 1 tab Pantoprazole Sodium (Protonix Ec Tab) 40 mg PO DAILY [facility] Last Admin: 03/24/17 09:53 Dose: 40 mg Prednisone (Prednisone Tab) 10 mg PO DAILY [facility] Last Admin: 03/24/17 09:53 Dose: 10 mg Venlafaxine HCl (Effexor Xr) 37.5 mg PO DAILY [facility] Last Admin: 03/24/17 09:53 Dose: 37.5 mg - Labs Labs: 03/24/17 07:01 03/24/17 07:01 PT 46.2 SECONDS (9.7-12.2) H* D 03/24/17 07:01 INR 3.9 03/24/17 07:01 APTT 42 SECONDS (21-34) H 03/22/17 14:11 - Constitutional Appears: Well - Head Exam Head Exam: ATRAUMATIC, NORMAL INSPECTION, NORMOCEPHALIC - Eye Exam Eye Exam: EOMI, Normal appearance, PERRL Pupil Exam: NORMAL ACCOMODATION, PERRL - ENT Exam ENT Exam: Mucous Membranes Moist, Normal Exam - Neck Exam Neck Exam: Full ROM, Normal Inspection. absent: Lymphadenopathy - Respiratory Exam Respiratory Exam: Decreased Breath Sounds - Cardiovascular Exam Cardiovascular Exam: REGULAR RHYTHM, +S1, +S2 - GI/Abdominal Exam GI & Abdominal Exam: Soft, Diminished Bowel Sounds - Rectal Exam Rectal Exam: Deferred Assessment and Plan (1) Alcohol abuse Status: Acute (2) Alcohol dependence Status: Acute (3) Anemia Status: Acute (4) Bilateral leg ulcer Status: Acute (5) Cellulitis Status: Acute (6) Closed head injury Status: Acute (7) Elevated INR Status: Acute (8) Eyebrow laceration Status: Acute (9) Finger laceration Status: Acute (10) Joint pain Status: Acute (11) Nailbed laceration, finger Status: Acute (12) Open fracture of tuft of distal phalanx of finger Status: Acute (13) Pulmonary embolism, bilateral Status: Acute (14) Recurrent falls Status: Acute (15) Stasis ulcer of left lower extremity Status: Acute (16) Arthritis Status: Chronic (17) COPD (chronic obstructive pulmonary disease) Status: Chronic (18) Chronic pain Status: Chronic (19) Drug abuse and dependence Status: Chronic (20) Rheumatoid arthritis flare Status: Chronic - Assessment and Plan (Free Text) Plan: Continue same Zosyn Vancomycin Methadone Percocet ID on board Prednisone Dr. Arnett
--- NOTE | 2017-03-24 18:40 | CP.PCM.PN ---
Subjective - Date & Time of Evaluation Date of Evaluation: 03/24/17 Time of Evaluation: 07:00 - Subjective Subjective: severely infected ulcers right foot worse may need debridement Objective - Vital Signs/Intake and Output Vital Signs (last 24 hours): Temp Pulse Resp BP Pulse Ox 98.1 F 78 20 125/84 96 03/24/17 07:51 03/24/17 07:51 03/24/17 07:51 03/24/17 07:51 03/24/17 07:51 Intake and Output: 03/24/17 03/24/17 06:59 18:59 Intake Total 300 460 Output Total 650 550 Balance -350 -90 - Medications Medications: Current Medications Amitriptyline HCl (Elavil) 100 mg PO DAILY [facility] Last Admin: 03/24/17 09:53 Dose: 100 mg Cyclobenzaprine HCl (Flexeril) 10 mg PO Q8 [facility] Last Admin: 03/24/17 13:24 Dose: 10 mg Gabapentin (Neurontin) 300 mg PO TID [facility] Last Admin: 03/24/17 17:33 Dose: 300 mg Piperacillin Sod/Tazobactam Sod (Zosyn 3.375 Gm Iv Premix) 3.375 gm in 50 mls @ 100 mls/hr IVPB Q6H [facility] Last Admin: 03/24/17 13:24 Dose: 100 mls/hr Vancomycin/Sodium Chloride (Vancocin) 1 gm in 200 mls @ 133 mls/hr IVPB Q24H [facility] Stop: 03/28/17 17:01 Last Admin: 03/24/17 17:33 Dose: 133 mls/hr Methadone HCl (Methadone) 20 mg PO 1400 [facility] Last Admin: 03/24/17 13:24 Dose: 20 mg Methadone HCl (Methadone) 30 mg PO 0600 [facility] Last Admin: 03/24/17 06:20 Dose: 30 mg Methadone HCl (Methadone) 30 mg PO 2200 [facility] Last Admin: 03/23/17 21:25 Dose: 30 mg Multivitamins (Hexavitamin) 1 tab PO DAILY [facility] Last Admin: 03/24/17 09:53 Dose: 1 tab Oxycodone/Acetaminophen (Percocet 5/325 Mg Tab) 1 tab PO Q6 PRN PRN Reason: Pain, moderate (4-7) Stop: 03/26/17 11:00 Last Admin: 03/24/17 02:18 Dose: 1 tab Pantoprazole Sodium (Protonix Ec Tab) 40 mg PO DAILY [facility] Last Admin: 03/24/17 09:53 Dose: 40 mg Prednisone (Prednisone Tab) 10 mg PO DAILY [facility] Last Admin: 03/24/17 09:53 Dose: 10 mg Venlafaxine HCl (Effexor Xr) 37.5 mg PO DAILY [facility] Last Admin: 03/24/17 09:53 Dose: 37.5 mg - Labs Labs: 03/24/17 07:01 03/24/17 07:01 PT 46.2 SECONDS (9.7-12.2) H* D 03/24/17 07:01 INR 3.9 03/24/17 07:01 APTT 42 SECONDS (21-34) H 03/22/17 14:11 - Constitutional Appears: Non-toxic, Chronically Ill - Head Exam Head Exam: NORMOCEPHALIC - Eye Exam Eye Exam: PERRL. absent: Scleral icterus - ENT Exam ENT Exam: Mucous Membranes Dry - Neck Exam Neck Exam: absent: Lymphadenopathy - Respiratory Exam Respiratory Exam: Decreased Breath Sounds, Clear to Ausculation Bilateral - Cardiovascular Exam Cardiovascular Exam: REGULAR RHYTHM - GI/Abdominal Exam GI & Abdominal Exam: Distended, Soft - Rectal Exam Rectal Exam: Deferred - Exam Exam: NORMAL INSPECTION Assessment and Plan (1) Bilateral leg ulcer Status: Acute (2) Cellulitis Status: Acute (3) Stasis ulcer of left lower extremity Status: Acute
--- NOTE | 2017-03-24 22:21 | CP.PCM.PN ---
Subjective - Date & Time of Evaluation Date of Evaluation: 03/24/17 Time of Evaluation: 17:25 - Subjective Subjective: Patient seen and evaluated Duplex positive for PAD Will check CTA Objective - Vital Signs/Intake and Output Vital Signs (last 24 hours): Temp Pulse Resp BP Pulse Ox 97.2 F L 96 H 20 122/73 95 03/24/17 16:00 03/24/17 16:00 03/24/17 16:00 03/24/17 16:00 03/24/17 16:00 Intake and Output: 03/24/17 03/25/17 18:59 06:59 Intake Total 460 Output Total 550 Balance -90 - Medications Medications: Current Medications Amitriptyline HCl (Elavil) 100 mg PO DAILY [facility] Last Admin: 03/24/17 09:53 Dose: 100 mg Cyclobenzaprine HCl (Flexeril) 10 mg PO Q8 [facility] Last Admin: 03/24/17 21:57 Dose: 10 mg Gabapentin (Neurontin) 300 mg PO TID [facility] Last Admin: 03/24/17 17:33 Dose: 300 mg Piperacillin Sod/Tazobactam Sod (Zosyn 3.375 Gm Iv Premix) 3.375 gm in 50 mls @ 100 mls/hr IVPB Q6H [facility] Last Admin: 03/24/17 20:22 Dose: 100 mls/hr Vancomycin/Sodium Chloride (Vancocin) 1 gm in 200 mls @ 133 mls/hr IVPB Q24H [facility] Stop: 03/28/17 17:01 Last Admin: 03/24/17 17:33 Dose: 133 mls/hr Methadone HCl (Methadone) 20 mg PO 1400 [facility] Last Admin: 03/24/17 13:24 Dose: 20 mg Methadone HCl (Methadone) 30 mg PO 0600 [facility] Last Admin: 03/24/17 06:20 Dose: 30 mg Methadone HCl (Methadone) 30 mg PO 2200 [facility] Last Admin: 03/24/17 21:57 Dose: 30 mg Multivitamins (Hexavitamin) 1 tab PO DAILY [facility] Last Admin: 03/24/17 09:53 Dose: 1 tab Oxycodone/Acetaminophen (Percocet 5/325 Mg Tab) 1 tab PO Q6 PRN PRN Reason: Pain, moderate (4-7) Stop: 03/26/17 11:00 Last Admin: 03/24/17 22:01 Dose: 1 tab Pantoprazole Sodium (Protonix Ec Tab) 40 mg PO DAILY [facility] Last Admin: 03/24/17 09:53 Dose: 40 mg Prednisone (Prednisone Tab) 10 mg PO DAILY [facility] Last Admin: 03/24/17 09:53 Dose: 10 mg Venlafaxine HCl (Effexor Xr) 37.5 mg PO DAILY [facility] Last Admin: 03/24/17 09:53 Dose: 37.5 mg - Labs Labs: 03/24/17 07:01 03/24/17 07:01 PT 46.2 SECONDS (9.7-12.2) H* D 03/24/17 07:01 INR 3.9 03/24/17 07:01 APTT 42 SECONDS (21-34) H 03/22/17 14:11
[2017-03-25] MEDS: Piperacill/Tazo 3.375gm in Dex 3.375 GM/50 ML BAG IVPB SCH ×3 (01:03→18:54)
[2017-03-25 06:44] LABS: INR 3.4
[2017-03-25 07:16] LABS: CHLORIDE 98 mmol/L (98-107)
[2017-03-25 07:17] LABS: POTASSIUM 3.5 mmol/L (3.6-5.2); SODIUM 142 mmol/L (132-148)
[2017-03-25 07:19] LABS: ALB/GLOB RATIO 0.9 (1.0-2.1); ALKALINE PHOSPHATASE 70 U/L (38-126); AST/SGOT 19 U/L (17-59); BILIRUBIN,TOTAL 0.5 mg/dL (0.2-1.3); BLOOD UREA NITROGEN 10 mg/dL (9-20); CARBON DIOXIDE 30 mmol/L (22-30); GFR AFRICAN-AMERICAN > 60; GLUCOSE,RANDOM 85 mg/dL (75-110); TOTAL PROTEIN 7.4 g/dL (6.3-8.3)
[2017-03-25 07:20] LABS: ALT/SGPT 21 U/L (21-72); CALCIUM 8.6 mg/dl (8.6-10.4)
[2017-03-25] MEDS ORDERED: Iodixanol 320 mg/ml 150 ml Bottle IV ONE (07:28)
[2017-03-25] MEDS ORDERED: Aminophylline 25 mg/ml Inj ONE (08:16)
--- NOTE | 2017-03-25 10:02 | CP.PCM.CON ---
History of Present Illness - History of Present Illness History of Present Illness: Palliative consult Requested by Emma Markham MD Reason: emotional support and symptoms management Patient is a 7 yo [place] resident, admitted with worsening cellulites of LEs. The Doppler of LEs upon admission was significant for 50-75 % stenosis of left femoral artery. ID consult was called for right foot infected ulcers and debridment was advised. Zosyn and Vanco IV initiated. PMH: HTN, DVT, PE on Coumadin, osteoporosis, fibromyligia, RA, periferal edema, chronic back and joints pain Soc. Hx: , [place] resident, Fam Hx: brother alive in good health, denies significant family Hx Review of Systems - Review of Systems All systems: reviewed and no additional remarkable complaints except - Constitutional Constitutional: Fatigue, Weakness - EENT Eyes: absent: As Per HPI, Blind Spots, Blurred Vision, Change in Vision, Decreased Night Vision, Diplopia, Discharge, Dry Eye, Exophthalmos, Floaters, Irritation, Itchy Eyes, Loss of Peripheral Vision, Pain, Photophobia, Requires Corrective Lenses, Sees Flashes, Spots in Vision, Tunnel Vision, Other Visual Disturbances, Loss of Vision, Other Ears: absent: As Per HPI, Decreased Hearing, Ear Discharge, Ear Pain, Tinnitus, Abnormal Hearing, Disequilibrium, Dizziness, Other Nose/Mouth/Throat: absent: As Per HPI, Epistaxis, Nasal Congestion, Nasal Discharge, Nasal Obstruction, Nasal Trauma, Nose Pain, Post Nasal Drip, Sinus Pain, Sinus Pressure, Bleeding Gums, Change in Voice, Dental Pain, Dry Mouth, Dysphagia, Halitosis, Hoarsness, Lip Swelling, Mouth Lesions, Mouth Pain, Odynophagia, Sore Throat, Throat Swelling, Tongue Swelling, Facial Pain, Neck Pain, Neck Mass, Other - Cardiovascular Cardiovascular: Leg Edema, Leg Ulcers, Pedal Edema - Respiratory Respiratory: absent: As Per HPI, Cough, Dyspnea, Hemoptysis, Dyspnea on Exertion , Wheezing, Snoring, Stridor, Pain on Inspiration, Chest Congestion, Excessive Mucous Production, Change in Mucous Color, Pain with Coughing, Other - Gastrointestinal Gastrointestinal: absent: As Per HPI, Abdominal Pain, Belching, Bloating, Change in Bowel Habits, Change in Stool Character, Coffee Ground Emesis, Constipation, Cramping, Diarrhea, Dyspepsia, Dysphagia, Early Satiety, Excessive Flatus, Fecal Incontinence, Heartburn, Hematemesis, Hematochezia, Loose Stools, Melena, Nausea, Odynophagia, Temesmus, Vomiting, Other - Genitourinary Genitourinary: absent: As Per HPI, Change in Urinary Stream, Difficulty Urinating, Dysuria, Flank Pain, Hematuria, Pyuria, Nocturia, Urinary Incontinence, Urinary Frequency, Urinary Hesitance, Urinary Urgency, Voiding Freq/Small Amts, Freq UTI, Hx Renal/Bladder Calculi, Hx /Renal Surgery, Bladder Distension, Other - Musculoskeletal Musculoskeletal: Abnormal Gait, Arthralgias, Back Pain, Deformity, Joint Swelling, Myalgias, Numbness, Stiffness, Tingling - Integumentary Integumentary: Skin Ulcer, Wounds - Neurological Neurological: absent: As Per HPI, Abnormal Gait, Abnormal Hearing, Abnormal Movements, Abnormal Speech, Behavioral Changes, Burning Sensations, Confusion, Convulsions, Disequilibrium, Dizziness, Numbness, Focal Weakness, Frequent Falls , Headaches, Lack of Coordination, Loss of Vision, Memory Loss, Paresthesias, Radicular Pain, Restless Legs, Sensory Deficit, Syncope, Tingling, Tremor, Vertigo, Weakness, Other Visual Disturbances, Other - Psychiatric Psychiatric: absent: As Per HPI, Abnormal Sleep Pattern, Anhedonia, Anxiety, Auditory Hallucinations, Behavioral Changes, Change in Appetite, Change in Libido, Confusion, Depression, Difficulty Concentrating, Hallucinations, Homicidal Ideation, Hopelessness, Irritability, Memory Loss, Mood Swings, Panic Attacks, Paranoia, Suicidal Ideation, Visual Hallucinations, Tactile Hallucinations, Other - Endocrine Endocrine: absent: As Per HPI, Change in Body Appearance, Change in Libido, Cold Intolorance, Deepening of Voice, Excessive Sweating, Fatigue, Flushing, Heat Intolorance, Increase in Ring/Shoe/Hat Size, Palpitations, Polydipsia, Polyphagia, Polyuria, Other - Hematologic/Lymphatic Hematologic: Easy Bleeding Past Patient History - Past Medical History & Family History Past Medical History?: Yes - Past Social History Smoking Status: Current Some Days Smoker - CARDIAC Hx Peripheral Edema: Yes - PULMONARY Hx Pulmonary Embolism: Yes - NEUROLOGICAL Hx Neurological Disorder: No - HEENT Hx HEENT Problems: No - RENAL Hx Chronic Kidney Disease: No - ENDOCRINE/METABOLIC Hx Endocrine Disorders: No - HEMATOLOGICAL/ONCOLOGICAL Hx Anemia: Yes - INTEGUMENTARY Hx Dermatological Problems: No - MUSCULOSKELETAL/RHEUMATOLOGICAL Hx Arthritis: Yes Hx Falls: No Hx Osteoporosis: Yes Hx Rheumatoid Arthritis: Yes - GASTROINTESTINAL Hx Gastrointestinal Disorders: Yes Hx Gastroesophageal Reflux: Yes - GENITOURINARY/GYNECOLOGICAL Hx Genitourinary Disorders: Yes Hx Incontinence: Yes - PSYCHIATRIC Hx Depression: Yes Hx Substance Use: No - SURGICAL HISTORY Hx Surgeries: No - ANESTHESIA Hx Anesthesia: No Hx Anesthesia Reactions: No Meds Allergies/Adverse Reactions: Allergies Allergy/AdvReac Type Severity Reaction Status Date / Time No Known Allergies Allergy Verified 03/22/17 13:28 - Medications Medications: Current Medications Amitriptyline HCl (Elavil) 100 mg PO DAILY [facility] Last Admin: 03/24/17 09:53 Dose: 100 mg Cyclobenzaprine HCl (Flexeril) 10 mg PO Q8 [facility] Last Admin: 03/25/17 07:55 Dose: Not Given Gabapentin (Neurontin) 300 mg PO TID [facility] Last Admin: 03/24/17 17:33 Dose: 300 mg Piperacillin Sod/Tazobactam Sod (Zosyn 3.375 Gm Iv Premix) 3.375 gm in 50 mls @ 100 mls/hr IVPB Q6H [facility] Last Admin: 03/25/17 01:03 Dose: 100 mls/hr Vancomycin/Sodium Chloride (Vancocin) 1 gm in 200 mls @ 133 mls/hr IVPB Q24H [facility] Stop: 03/28/17 17:01 Last Admin: 03/24/17 17:33 Dose: 133 mls/hr Methadone HCl (Methadone) 20 mg PO 1400 [facility] Last Admin: 03/24/17 13:24 Dose: 20 mg Methadone HCl (Methadone) 30 mg PO 0600 [facility] Last Admin: 03/25/17 07:56 Dose: Not Given Methadone HCl (Methadone) 30 mg PO 2200 [facility] Last Admin: 03/24/17 21:57 Dose: 30 mg Multivitamins (Hexavitamin) 1 tab PO DAILY [facility] Last Admin: 03/24/17 09:53 Dose: 1 tab Oxycodone/Acetaminophen (Percocet 5/325 Mg Tab) 1 tab PO Q6 PRN PRN Reason: Pain, moderate (4-7) Stop: 03/26/17 11:00 Last Admin: 03/24/17 22:01 Dose: 1 tab Pantoprazole Sodium (Protonix Ec Tab) 40 mg PO DAILY [facility] Last Admin: 03/24/17 09:53 Dose: 40 mg Prednisone (Prednisone Tab) 10 mg PO DAILY [facility] Last Admin: 03/24/17 09:53 Dose: 10 mg Venlafaxine HCl (Effexor Xr) 37.5 mg PO DAILY [facility] Last Admin: 03/24/17 09:53 Dose: 37.5 mg Physical Exam - Constitutional Appears: Chronically Ill - Head Exam Head Exam: ATRAUMATIC, NORMAL INSPECTION, NORMOCEPHALIC - Eye Exam Eye Exam: Normal appearance Pupil Exam: NORMAL ACCOMODATION, PERRL - ENT Exam ENT Exam: Mucous Membranes Moist, Normal Exam - Neck Exam Neck exam: Positive for: Normal Inspection - Respiratory Exam Respiratory Exam: Clear to Auscultation Bilateral, NORMAL BREATHING PATTERN - Cardiovascular Exam Cardiovascular Exam: REGULAR RHYTHM, +S1, +S2 - GI/Abdominal Exam GI & Abdominal Exam: Normal Bowel Sounds, Soft - Rectal Exam Rectal Exam: Deferred - Extremities Exam Extremities exam: Positive for: pedal edema, tenderness - Back Exam Back exam: NORMAL INSPECTION - Neurological Exam Neurological exam: Alert, Oriented x3 - Psychiatric Exam Psychiatric exam: Normal Affect, Normal Mood - Skin Skin Exam: Mottled Results - Vital Signs Recent Vital Signs: Last Vital Signs Temp 97.7 F 03/25/17 08:44 Pulse 80 03/25/17 08:44 Resp 20 03/25/17 08:44 BP 135/85 03/25/17 08:44 Pulse Ox 100 03/25/17 08:44 - Labs Result Diagrams: 03/24/17 07:01 03/25/17 06:25 Labs: Laboratory Results - last 24 hr 03/25/17 03/25/17 06:25 06:25 PT 40.5 H* D INR 3.4 Sodium 142 Potassium 3.5 L Chloride 98 Carbon Dioxide 30 Anion Gap 18 BUN 10 Creatinine 0.8 Est GFR ( Amer) > 60 Est GFR (Non-Af Amer) > 60 Random Glucose 85 Calcium 8.6 Total Bilirubin 0.5 AST 19 ALT 21 Alkaline Phosphatase 70 Total Protein 7.4 Albumin 3.4 L Globulin 4.0 H Albumin/Globulin Ratio 0.9 L Assessment & Plan - Assessment and Plan (Free Text) Assessment: Palliative consult Code status Full Code, no advance directive on chart, PPS 30% I reviewed medical records, all diagnostic studies, examined and interviewed patient in the bed Patient is alert, oriented X 3, looking chronically ill and with painful joints. Patient is unable to ambulate. Patient was using a WC at the [place]. LEs are swollen, discolored. There is skin ulcer to right foot and oozing of yellow drainage from the area. Debility is very significant. Patient also reports that " each joint in his body hurts". Patient has been on long lasting pain management. Methadone on board for chronic pain management along with PRN meds. There is no sedation. As per ID consult, patient will need a IV Tx and most likely debridement of ulcerated area. WBC 6.1, Hb 10.8, PT 40.5, INR 3.4. BP135/85, HR 80, O2Sat 100%. All other systems reviewed and are negative. Impression * Chronic pain due to RA, osteoarthritis and fybromilagia * Physical debility * Limited mobility * Patient depends of care Suggestion * Pain management * Patient may need a PICC line for IV Tx, as it was quite difficult to insert HL yesterday * Would refer to vascular surgery for LEs ulcer and poor perfusion * Please provide WC for patient to enhance his independence Thank you very much for the consult.
[2017-03-25 11:30] LABS: BASO # 0.1 K/uL (0.0-0.2); EOS # 0.1 K/uL (0.0-0.7); EOS % 1.6 % (0.0-4.0); HEMATOCRIT 34.4 % (35.0-51.0); LYMPH # 1.7 K/uL (1.0-4.3); LYMPH % 22.6 % (20.0-40.0); MEAN CELL VOLUME 86.3 fL (80.0-94.0); MEAN CORPUSCULAR HEMOGLOBIN 27.9 pg (27.0-31.0); MEAN CORPUSCULAR HGB CONC 32.4 g/dL (33.0-37.0); MEAN PLATELET VOLUME 7.8 fL (7.2-11.7); MONO # 0.7 K/uL (0.0-0.8); MONO % 9.3 % (0.0-10.0); WHITE BLOOD COUNT 7.4 K/uL (4.8-10.8)
[2017-03-25] MEDS: Pantoprazole 40 mg EC Tab PO SCH (13:58)
[2017-03-25] MEDS: Multiple Vitamins Tab PO SCH (13:58)
[2017-03-25] MEDS: Venlafaxine 37.5 mg ER Cap PO SCH (13:59)
[2017-03-25] MEDS ORDERED: Potassium Chloride 20 mEq ER Tab PO ONE (14:00)
--- NOTE | 2017-03-25 15:33 | CARD ---
APPROVED REPORT EXAM: Two-dimensional and M-mode echocardiogram with Doppler and color Doppler. Other Information Quality : GoodRhythm : NSR INDICATION Pulmonary Embolism COPD CELLULITUS INFECTED LEG ULCERS, ALCOHOL ABUSE M-Mode DIMENSIONS RVDd1.72 (2.1-3.2cm)Left Atrium (MM)3.59 (2.5-4.0cm) IVSd0.90 (0.7-1.1cm)Aortic Root3.44 (2.2-3.7cm) LVDd6.48 (4.0-5.6cm)Aortic Cusp Exc.2.15 (1.5-2.0cm) PWd0.90 (0.7-1.1cm)FS (%) 18 % LVDs5.31 (2.0-3.8cm)LVEF (%)37 (>50%) Aortic Valve AoV Peak Ysjazpdo790.6cm/Michele Peak GR.7mmHg Mitral Valve MV E Kcrkxclb74.0cm/sMV A Ywlaixze99.4cm/sE/A ratio0.9 TDI E/Lateral E'0.0E/Medial E'0.0 Tricuspid Valve TR Peak Wovgiiqk257hi/sTR Peak Gr.[id number] LEFT VENTRICLE The Left Ventricle is mildly dilated. There is normal left ventricular wall thickness. The systolic function is mildly to moderately impaired. Transmitral Doppler flow pattern is abnormal. RIGHT VENTRICLE The right ventricle is normal size. ATRIA The left atrium size is normal. AORTIC VALVE The aortic valve is normal in structure. MITRAL VALVE The mitral valve is normal in structure. TRICUSPID VALVE There is trace to mild tricuspid regurgitation. <Conclusion> Mild to moderately reuced LV systolic dysfunction. Dilated LA. Mild TR. DIastolic dysfunction.
[2017-03-25] MEDS: Vancomycin 1 gm/NS 200 ml 1 GM/200 ML BAG IVPB SCH ×2 (17:00)
--- NOTE | 2017-03-25 19:26 | CP.PCM.PN ---
Subjective - Date & Time of Evaluation Date of Evaluation: 03/25/17 Time of Evaluation: 08:00 - Subjective Subjective: severely infected ulcers + pseudomonas IV rx in progress may need debridement Objective - Vital Signs/Intake and Output Vital Signs (last 24 hours): Temp Pulse Resp BP Pulse Ox 98.0 F 108 H 20 125/69 94 L 03/25/17 15:00 03/25/17 15:00 03/25/17 15:00 03/25/17 15:00 03/25/17 15:00 Intake and Output: 03/25/17 03/26/17 18:59 06:59 Intake Total 200 Output Total 900 Balance -700 - Medications Medications: Current Medications Amitriptyline HCl (Elavil) 100 mg PO DAILY [facility] Last Admin: 03/25/17 14:02 Dose: 100 mg Cyclobenzaprine HCl (Flexeril) 10 mg PO Q8 [facility] Last Admin: 03/25/17 14:04 Dose: 10 mg Gabapentin (Neurontin) 300 mg PO TID [facility] Last Admin: 03/25/17 18:00 Dose: 300 mg Vancomycin/Sodium Chloride (Vancocin) 1 gm in 200 mls @ 133 mls/hr IVPB Q24H [facility] Stop: 03/28/17 17:01 Last Admin: 03/25/17 17:00 Dose: 133 mls/hr Cefepime HCl (Maxipime Iv 2 Gm Premix) 2 gm in 100 mls @ 200 mls/hr IVPB Q12H [facility] Stop: 03/30/17 19:31 Methadone HCl (Methadone) 20 mg PO 1400 [facility] Last Admin: 03/25/17 13:58 Dose: 20 mg Methadone HCl (Methadone) 30 mg PO 0600 [facility] Last Admin: 03/25/17 07:56 Dose: Not Given Methadone HCl (Methadone) 30 mg PO 2200 [facility] Last Admin: 03/24/17 21:57 Dose: 30 mg Multivitamins (Hexavitamin) 1 tab PO DAILY [facility] Last Admin: 03/25/17 13:58 Dose: 1 tab Oxycodone/Acetaminophen (Percocet 5/325 Mg Tab) 1 tab PO Q6 PRN PRN Reason: Pain, moderate (4-7) Stop: 03/26/17 11:00 Last Admin: 03/24/17 22:01 Dose: 1 tab Pantoprazole Sodium (Protonix Ec Tab) 40 mg PO DAILY [facility] Last Admin: 03/25/17 13:58 Dose: 40 mg Prednisone (Prednisone Tab) 10 mg PO DAILY [facility] Last Admin: 03/25/17 13:59 Dose: 10 mg Venlafaxine HCl (Effexor Xr) 37.5 mg PO DAILY [facility] Last Admin: 03/25/17 13:59 Dose: 37.5 mg - Labs Labs: 03/25/17 11:25 03/25/17 06:25 PT 40.5 SECONDS (9.7-12.2) H* D 03/25/17 06:25 INR 3.4 03/25/17 06:25 APTT 42 SECONDS (21-34) H 03/22/17 14:11 - Constitutional Appears: Non-toxic, Chronically Ill - Head Exam Head Exam: NORMOCEPHALIC - Eye Exam Eye Exam: absent: Scleral icterus - ENT Exam ENT Exam: Normal External Ear Exam - Neck Exam Neck Exam: absent: Lymphadenopathy - Respiratory Exam Respiratory Exam: Decreased Breath Sounds, Clear to Ausculation Bilateral - Cardiovascular Exam Cardiovascular Exam: REGULAR RHYTHM - GI/Abdominal Exam GI & Abdominal Exam: Distended, Soft - Rectal Exam Rectal Exam: Deferred Assessment and Plan (1) Bilateral leg ulcer Status: Acute (2) Cellulitis Status: Acute (3) Stasis ulcer of left lower extremity Status: Acute
--- NOTE | 2017-03-25 20:15 | CP.PCM.PN ---
Subjective - Date & Time of Evaluation Date of Evaluation: 03/25/17 Time of Evaluation: 10:20 - Subjective Subjective: clinically same Objective - Vital Signs/Intake and Output Vital Signs (last 24 hours): Temp Pulse Resp BP Pulse Ox 98.0 F 108 H 20 125/69 94 L 03/25/17 15:00 03/25/17 15:00 03/25/17 15:00 03/25/17 15:00 03/25/17 15:00 Intake and Output: 03/25/17 03/26/17 18:59 06:59 Intake Total 200 Output Total 900 Balance -700 - Medications Medications: Current Medications Amitriptyline HCl (Elavil) 100 mg PO DAILY [facility] Last Admin: 03/25/17 14:02 Dose: 100 mg Cyclobenzaprine HCl (Flexeril) 10 mg PO Q8 [facility] Last Admin: 03/25/17 14:04 Dose: 10 mg Gabapentin (Neurontin) 300 mg PO TID [facility] Last Admin: 03/25/17 18:00 Dose: 300 mg Vancomycin/Sodium Chloride (Vancocin) 1 gm in 200 mls @ 133 mls/hr IVPB Q24H [facility] Stop: 03/28/17 17:01 Last Admin: 03/25/17 17:00 Dose: 133 mls/hr Cefepime HCl (Maxipime Iv 2 Gm Premix) 2 gm in 100 mls @ 200 mls/hr IVPB Q12H [facility] Stop: 03/30/17 21:01 Methadone HCl (Methadone) 20 mg PO 1400 [facility] Last Admin: 03/25/17 13:58 Dose: 20 mg Methadone HCl (Methadone) 30 mg PO 0600 [facility] Last Admin: 03/25/17 07:56 Dose: Not Given Methadone HCl (Methadone) 30 mg PO 2200 [facility] Last Admin: 03/24/17 21:57 Dose: 30 mg Multivitamins (Hexavitamin) 1 tab PO DAILY [facility] Last Admin: 03/25/17 13:58 Dose: 1 tab Oxycodone/Acetaminophen (Percocet 5/325 Mg Tab) 1 tab PO Q6 PRN PRN Reason: Pain, moderate (4-7) Stop: 03/26/17 11:00 Last Admin: 03/24/17 22:01 Dose: 1 tab Pantoprazole Sodium (Protonix Ec Tab) 40 mg PO DAILY [facility] Last Admin: 03/25/17 13:58 Dose: 40 mg Prednisone (Prednisone Tab) 10 mg PO DAILY [facility] Last Admin: 03/25/17 13:59 Dose: 10 mg Venlafaxine HCl (Effexor Xr) 37.5 mg PO DAILY [facility] Last Admin: 03/25/17 13:59 Dose: 37.5 mg - Labs Labs: 03/25/17 11:25 03/25/17 06:25 PT 40.5 SECONDS (9.7-12.2) H* D 03/25/17 06:25 INR 3.4 03/25/17 06:25 APTT 42 SECONDS (21-34) H 03/22/17 14:11 Assessment and Plan (1) Alcohol abuse Status: Acute (2) Alcohol dependence Status: Acute (3) Anemia Status: Acute (4) Bilateral leg ulcer Status: Acute (5) Cellulitis Status: Acute (6) Closed head injury Status: Acute (7) Elevated INR Status: Acute (8) Eyebrow laceration Status: Acute (9) Finger laceration Status: Acute (10) Joint pain Status: Acute (11) Nailbed laceration, finger Status: Acute (12) Open fracture of tuft of distal phalanx of finger Status: Acute (13) Pulmonary embolism, bilateral Status: Acute (14) Recurrent falls Status: Acute (15) Stasis ulcer of left lower extremity Status: Acute (16) Arthritis Status: Chronic (17) COPD (chronic obstructive pulmonary disease) Status: Chronic (18) Chronic pain Status: Chronic (19) Drug abuse and dependence Status: Chronic (20) Rheumatoid arthritis flare Status: Chronic - Assessment and Plan (Free Text) Plan: Continue as ordered Patient clinically better Wound care Continue antibiotics Cefepime Methadone Venlafaxine Flexeril ID on board Dr. Arnett on board Labs next a.m.
[2017-03-25] MEDS: Cefepime IV 2 gm in Dextrose 2 GM/100 ML BAG IVPB SCH (21:06)
--- NOTE | 2017-03-25 23:20 | CP.PCM.CON ---
History of Present Illness - History of Present Illness History of Present Illness: VASCULAR SURGERY CONSULT NOTE FOR DR. WOODY 57yo M with PMHx of HTN, PE on Coumadin, DVT, OA, RA, fibromyalgia who was sent from group home to ED for evaluation of worsening cellulitis. Pt also found to have elevated INR. Patient states that he has had bilateral leg ulcers for about 10 years. He does not walk and has a wheel chair that he uses at the group home. He reports pain in bilateral legs. Wound care nurse is doing wound care for ulcers. Arterial duplex was done which found 50-75% stenosis of left distal superficial femoral artery. CT Angiogram has been ordered. PMHx: HTN, PE on Coumadin, DVT, OA, RA, fibromyalgia, chronic back and joint pain Surg: none Allergies: none Review of Systems - Review of Systems All systems: reviewed and no additional remarkable complaints except (as per hpi ) Past Patient History - Past Medical History & Family History Past Medical History?: Yes - Past Social History Smoking Status: Current Some Days Smoker - CARDIAC Hx Peripheral Edema: Yes - PULMONARY Hx Pulmonary Embolism: Yes - NEUROLOGICAL Hx Neurological Disorder: No - HEENT Hx HEENT Problems: No - RENAL Hx Chronic Kidney Disease: No - ENDOCRINE/METABOLIC Hx Endocrine Disorders: No - HEMATOLOGICAL/ONCOLOGICAL Hx Anemia: Yes - INTEGUMENTARY Hx Dermatological Problems: No - MUSCULOSKELETAL/RHEUMATOLOGICAL Hx Arthritis: Yes Hx Falls: No Hx Osteoporosis: Yes Hx Rheumatoid Arthritis: Yes - GASTROINTESTINAL Hx Gastrointestinal Disorders: Yes Hx Gastroesophageal Reflux: Yes - GENITOURINARY/GYNECOLOGICAL Hx Genitourinary Disorders: Yes Hx Incontinence: Yes - PSYCHIATRIC Hx Depression: Yes Hx Substance Use: No - SURGICAL HISTORY Hx Surgeries: No - ANESTHESIA Hx Anesthesia: No Hx Anesthesia Reactions: No Meds Allergies/Adverse Reactions: Allergies Allergy/AdvReac Type Severity Reaction Status Date / Time No Known Allergies Allergy Verified 03/22/17 13:28 - Medications Medications: Current Medications Amitriptyline HCl (Elavil) 100 mg PO DAILY [facility] Last Admin: 03/25/17 14:02 Dose: 100 mg Cyclobenzaprine HCl (Flexeril) 10 mg PO Q8 [facility] Last Admin: 03/25/17 21:06 Dose: 10 mg Gabapentin (Neurontin) 300 mg PO TID [facility] Last Admin: 03/25/17 18:00 Dose: 300 mg Vancomycin/Sodium Chloride (Vancocin) 1 gm in 200 mls @ 133 mls/hr IVPB Q24H [facility] Stop: 03/28/17 17:01 Last Admin: 03/25/17 17:00 Dose: Not Given Cefepime HCl (Maxipime Iv 2 Gm Premix) 2 gm in 100 mls @ 200 mls/hr IVPB Q12H [facility] Stop: 03/30/17 21:01 Last Admin: 03/25/17 21:06 Dose: Not Given Methadone HCl (Methadone) 20 mg PO 1400 [facility] Last Admin: 03/25/17 13:58 Dose: 20 mg Methadone HCl (Methadone) 30 mg PO 0600 [facility] Last Admin: 03/25/17 07:56 Dose: Not Given Methadone HCl (Methadone) 30 mg PO 2200 [facility] Last Admin: 03/25/17 21:07 Dose: 30 mg Multivitamins (Hexavitamin) 1 tab PO DAILY [facility] Last Admin: 03/25/17 13:58 Dose: 1 tab Oxycodone/Acetaminophen (Percocet 5/325 Mg Tab) 1 tab PO Q6 PRN PRN Reason: Pain, moderate (4-7) Stop: 03/26/17 11:00 Last Admin: 03/24/17 22:01 Dose: 1 tab Pantoprazole Sodium (Protonix Ec Tab) 40 mg PO DAILY [facility] Last Admin: 03/25/17 13:58 Dose: 40 mg Prednisone (Prednisone Tab) 10 mg PO DAILY [facility] Last Admin: 03/25/17 13:59 Dose: 10 mg Venlafaxine HCl (Effexor Xr) 37.5 mg PO DAILY [facility] Last Admin: 03/25/17 13:59 Dose: 37.5 mg Physical Exam - Constitutional Appears: Non-toxic, Chronically Ill - Respiratory Exam Respiratory Exam: NORMAL BREATHING PATTERN. absent: Respiratory Distress - Cardiovascular Exam Cardiovascular Exam: +S1, +S2 - GI/Abdominal Exam GI & Abdominal Exam: Hernia (umbilical), Soft. absent: Tenderness Additional comments: ecchymosis on Right abdomen (pt states from 3 weeks ago) - Extremities Exam Additional comments: Bilateral feet warm to touch, bilateral pitting edema in LE + strong dorsalis pedis and posterior tibialis pulses bilaterally with doppler Wound care dressings in place - Neurological Exam Neurological exam: Alert, Oriented x3 - Psychiatric Exam Psychiatric exam: Normal Affect, Normal Mood - Skin Skin Exam: Dry (very dry), Normal Color, Warm Results - Vital Signs Recent Vital Signs: Last Vital Signs Temp 98.0 F 03/25/17 15:00 Pulse 108 H 03/25/17 15:00 Resp 20 03/25/17 15:00 BP 125/69 03/25/17 15:00 Pulse Ox 94 L 03/25/17 15:00 - Labs Result Diagrams: 03/25/17 11:25 03/25/17 06:25 Labs: Laboratory Results - last 24 hr 03/25/17 03/25/17 03/25/17 06:25 06:25 11:25 WBC 7.4 RBC 3.98 L Hgb 11.1 L Hct 34.4 L MCV 86.3 MCH 27.9 MCHC 32.4 L RDW 17.0 H Plt Count 443 H MPV 7.8 Neut % (Auto) 65.5 Lymph % (Auto) 22.6 Rich % (Auto) 9.3 Eos % (Auto) 1.6 Baso % (Auto) 1.0 Neut # 4.9 Lymph # 1.7 Rich # 0.7 Eos # 0.1 Baso # 0.1 PT 40.5 H* D INR 3.4 Sodium 142 Potassium 3.5 L Chloride 98 Carbon Dioxide 30 Anion Gap 18 BUN 10 Creatinine 0.8 Est GFR ( Amer) > 60 Est GFR (Non-Af Amer) > 60 Random Glucose 85 Calcium 8.6 Total Bilirubin 0.5 AST 19 ALT 21 Alkaline Phosphatase 70 Total Protein 7.4 Albumin 3.4 L Globulin 4.0 H Albumin/Globulin Ratio 0.9 L Assessment & Plan - Assessment and Plan (Free Text) Assessment: 57yo M with PMHx of HTN, PE on Coumadin, DVT, OA, RA, fibromyalgia who has bilateral stasis ulcers with non healing wounds - Dopplerable pulses in bilateral dorsalis pedis and posterior tibial arteries - Afebrile, no leukocytosis - Wound cx = pseudomonas aeruginosa, beta hemolytic strep group B, Gram - rods - On cefepime and vanco per ID - Arterial duplex found 50-75% stenosis of left distal superficial femoral artery - Will f/u CTA that had been ordered - Discussed plan with Dr. Jed Cordoba PGY-3
--- NOTE | 2017-03-26 08:02 | CP.PCM.PN ---
Subjective - Date & Time of Evaluation Date of Evaluation: 03/26/17 Time of Evaluation: 07:30 - Subjective Subjective: Vascular sx progress note for Dr. Remedios Taveras, PGY-1 Pt S & E at bedside. Pt reports B/L LE pain/restlessness. States he has had B/L LE ulcers for years. Denies other complaints. Objective - Vital Signs/Intake and Output Vital Signs (last 24 hours): Temp Pulse Resp BP Pulse Ox 98.3 F 69 16 123/69 99 03/26/17 00:18 03/26/17 00:18 03/26/17 00:18 03/26/17 00:18 03/26/17 00:18 Intake and Output: 03/26/17 03/26/17 06:59 18:59 Intake Total 400 Output Total 1700 Balance -1300 - Medications Medications: Current Medications Amitriptyline HCl (Elavil) 100 mg PO DAILY [facility] Last Admin: 03/25/17 14:02 Dose: 100 mg Cyclobenzaprine HCl (Flexeril) 10 mg PO Q8 [facility] Last Admin: 03/25/17 21:06 Dose: 10 mg Gabapentin (Neurontin) 300 mg PO TID [facility] Last Admin: 03/25/17 18:00 Dose: 300 mg Vancomycin/Sodium Chloride (Vancocin) 1 gm in 200 mls @ 133 mls/hr IVPB Q24H [facility] Stop: 03/28/17 17:01 Last Admin: 03/25/17 17:00 Dose: Not Given Cefepime HCl (Maxipime Iv 2 Gm Premix) 2 gm in 100 mls @ 200 mls/hr IVPB Q12H [facility] Stop: 03/30/17 21:01 Last Admin: 03/25/17 21:06 Dose: Not Given Methadone HCl (Methadone) 20 mg PO 1400 [facility] Last Admin: 03/25/17 13:58 Dose: 20 mg Methadone HCl (Methadone) 30 mg PO 0600 [facility] Last Admin: 03/25/17 07:56 Dose: Not Given Methadone HCl (Methadone) 30 mg PO 2200 [facility] Last Admin: 03/25/17 21:07 Dose: 30 mg Multivitamins (Hexavitamin) 1 tab PO DAILY [facility] Last Admin: 03/25/17 13:58 Dose: 1 tab Oxycodone/Acetaminophen (Percocet 5/325 Mg Tab) 1 tab PO Q6 PRN PRN Reason: Pain, moderate (4-7) Stop: 03/26/17 11:00 Last Admin: 03/24/17 22:01 Dose: 1 tab Pantoprazole Sodium (Protonix Ec Tab) 40 mg PO DAILY [facility] Last Admin: 03/25/17 13:58 Dose: 40 mg Prednisone (Prednisone Tab) 10 mg PO DAILY [facility] Last Admin: 03/25/17 13:59 Dose: 10 mg Venlafaxine HCl (Effexor Xr) 37.5 mg PO DAILY [facility] Last Admin: 03/25/17 13:59 Dose: 37.5 mg - Labs Labs: 03/25/17 11:25 03/25/17 06:25 PT 40.5 SECONDS (9.7-12.2) H* D 03/25/17 06:25 INR 3.4 03/25/17 06:25 APTT 42 SECONDS (21-34) H 03/22/17 14:11 - Constitutional Appears: Non-toxic, No Acute Distress - Head Exam Head Exam: ATRAUMATIC, NORMAL INSPECTION, NORMOCEPHALIC - Eye Exam Eye Exam: EOMI, Normal appearance - ENT Exam ENT Exam: Mucous Membranes Moist - Neck Exam Neck Exam: Full ROM - Respiratory Exam Respiratory Exam: Clear to Ausculation Bilateral, NORMAL BREATHING PATTERN - Cardiovascular Exam Cardiovascular Exam: REGULAR RHYTHM, +S1, +S2 - GI/Abdominal Exam GI & Abdominal Exam: Soft, Hernia (umbilical), Normal Bowel Sounds. absent: Distended (obese), Firm, Guarding, Tenderness - Extremities Exam Extremities Exam: Pedal Edema Additional comments: Right LE w/superficial non healing ulcer over dorsal/lateral aspect of mid foot - dressing place - C/D/I. Right LE w/superficial non healing ulcer of mid leg lateral aspect w/dressing in place - moderate amount of serous strike through. Left mid leg w/superficial non healing ulcer of mid/lateral leg w/dressing in place, moderate amount of serous strike through/dried. B/L LE w/chronic venous stasis skin changes- woody texture - Neurological Exam Neurological Exam: Alert, Awake, Oriented x3 - Psychiatric Exam Psychiatric exam: Normal Affect, Normal Mood - Skin Skin Exam: Normal Color, Warm. absent: Intact Additional comments: See extremity exam for skin findings of Legs Assessment and Plan - Assessment and Plan (Free Text) Assessment: 57M w/B/L LE stasis ulcers w/non healing wounds- stable Plan: B/L LE dressings changed Cont Abx FU CTA Further recs pending imaging results/attending DW attending Darcy, PGY-1
[2017-03-26 08:37] LABS: INR 2.2
[2017-03-26 08:38] LABS: BASO # 0.1 K/uL (0.0-0.2); EOS # 0.1 K/uL (0.0-0.7); EOS % 1.6 % (0.0-4.0); HEMATOCRIT 34.2 % (35.0-51.0); LYMPH # 2.1 K/uL (1.0-4.3); LYMPH % 25.6 % (20.0-40.0); MEAN CELL VOLUME 86.3 fL (80.0-94.0); MEAN CORPUSCULAR HGB CONC 32.4 g/dL (33.0-37.0); MONO # 0.5 K/uL (0.0-0.8); MONO % 6.4 % (0.0-10.0); NRBC % 0.1 % (0.0-2.0); RED CELL DISTRIBUTION WIDTH 17.2 % (11.5-14.5); WHITE BLOOD COUNT 8.2 K/uL (4.8-10.8)
[2017-03-26 09:01] LABS: CHLORIDE 98 mmol/L (98-107)
[2017-03-26 09:02] LABS: POTASSIUM 3.8 mmol/L (3.6-5.2); SODIUM 138 mmol/L (132-148)
[2017-03-26 09:05] LABS: ALKALINE PHOSPHATASE 76 U/L (38-126); ALT/SGPT 28 U/L (21-72); AST/SGOT 23 U/L (17-59); BILIRUBIN,TOTAL 0.5 mg/dL (0.2-1.3); BLOOD UREA NITROGEN 8 mg/dL (9-20); CALCIUM 8.7 mg/dl (8.6-10.4); CARBON DIOXIDE 29 mmol/L (22-30); GFR AFRICAN-AMERICAN > 60; GLUCOSE,RANDOM 78 mg/dL (75-110); TOTAL PROTEIN 7.8 g/dL (6.3-8.3)
[2017-03-26 09:09] LABS: ALB/GLOB RATIO 0.9 (1.0-2.1)
[2017-03-26] MEDS: Venlafaxine 37.5 mg ER Cap PO SCH (10:08)
[2017-03-26] MEDS: Pantoprazole 40 mg EC Tab PO SCH (10:08)
[2017-03-26] MEDS: Oxycodone/Acetaminophen 5/325 mg Tab PO PRN (10:09)
[2017-03-26] MEDS: Multiple Vitamins Tab PO SCH (10:10)
[2017-03-26] MEDS: Cefepime IV 2 gm in Dextrose 2 GM/100 ML BAG IVPB SCH ×2 (10:10→21:19)
--- NOTE | 2017-03-26 11:26 | CP.PCM.PN ---
Subjective - Date & Time of Evaluation Date of Evaluation: 03/26/17 Time of Evaluation: 11:23 - Subjective Subjective: PGY2 progress note for Dr. Markham Pt is seen and examined at bedside. Patient denies having any CP, SOB, abd pain , N/V/D/C. patient is tolerating diet. Denies having any LE pain or discomfort. 12 point ROS are negative except for the above mentioned. Objective - Vital Signs/Intake and Output Vital Signs (last 24 hours): Temp Pulse Resp BP Pulse Ox 98 F 89 23 133/92 H 96 03/26/17 08:00 03/26/17 08:00 03/26/17 08:00 03/26/17 08:00 03/26/17 08:00 Intake and Output: 03/26/17 03/26/17 06:59 18:59 Intake Total 400 Output Total 1700 Balance -1300 - Medications Medications: Current Medications Amitriptyline HCl (Elavil) 100 mg PO DAILY [facility] Last Admin: 03/26/17 10:08 Dose: 100 mg Cyclobenzaprine HCl (Flexeril) 10 mg PO Q8 [facility] Last Admin: 03/26/17 08:09 Dose: Not Given Gabapentin (Neurontin) 300 mg PO TID [facility] Last Admin: 03/26/17 10:10 Dose: 300 mg Vancomycin/Sodium Chloride (Vancocin) 1 gm in 200 mls @ 133 mls/hr IVPB Q24H [facility] Stop: 03/28/17 17:01 Last Admin: 03/25/17 17:00 Dose: Not Given Cefepime HCl (Maxipime Iv 2 Gm Premix) 2 gm in 100 mls @ 200 mls/hr IVPB Q12H [facility] Stop: 03/30/17 21:01 Last Admin: 03/26/17 10:10 Dose: Not Given Sodium Chloride (Sodium Chloride 0.9%) 1,000 mls @ 50 mls/hr IV .Q20H [facility] Methadone HCl (Methadone) 20 mg PO 1400 [facility] Last Admin: 03/25/17 13:58 Dose: 20 mg Methadone HCl (Methadone) 30 mg PO 0600 [facility] Last Admin: 03/26/17 08:09 Dose: Not Given Methadone HCl (Methadone) 30 mg PO 2200 [facility] Last Admin: 03/25/17 21:07 Dose: 30 mg Multivitamins (Hexavitamin) 1 tab PO DAILY [facility] Last Admin: 03/26/17 10:10 Dose: 1 tab Pantoprazole Sodium (Protonix Ec Tab) 40 mg PO DAILY [facility] Last Admin: 03/26/17 10:08 Dose: 40 mg Prednisone (Prednisone Tab) 10 mg PO DAILY [facility] Last Admin: 03/26/17 10:10 Dose: 10 mg Venlafaxine HCl (Effexor Xr) 37.5 mg PO DAILY [facility] Last Admin: 03/26/17 10:08 Dose: 37.5 mg Warfarin Sodium (Coumadin) 3 mg PO 1800 [facility] Stop: 03/26/17 18:01 - Labs Labs: 03/26/17 08:25 03/26/17 08:25 PT 25.5 SECONDS (9.7-12.2) H D 03/26/17 08:25 INR 2.2 D 03/26/17 08:25 APTT 42 SECONDS (21-34) H 03/22/17 14:11 - Constitutional Appears: Non-toxic, No Acute Distress - Head Exam Head Exam: ATRAUMATIC - Eye Exam Eye Exam: EOMI - ENT Exam ENT Exam: Mucous Membranes Moist - Respiratory Exam Respiratory Exam: Clear to Ausculation Bilateral. absent: Accessory Muscle Use , Rales, Rhonchi, Wheezes, Respiratory Distress - Cardiovascular Exam Cardiovascular Exam: REGULAR RHYTHM, +S1, +S2. absent: Gallop, Rubs, Murmur - GI/Abdominal Exam GI & Abdominal Exam: Soft, Normal Bowel Sounds. absent: Guarding, Rigid, Tenderness, Organomegaly - Extremities Exam Extremities Exam: Pedal Edema - Neurological Exam Neurological Exam: Alert, Awake, Oriented x3 - Psychiatric Exam Psychiatric exam: Normal Affect, Normal Mood - Skin Skin Exam: Dry, Intact, Normal Color, Warm Assessment and Plan - Assessment and Plan (Free Text) Assessment: 57 year old male with past medical history of HTN, DVT, PE on coumadin, fibromyalgia, OA, and RA is admitted for worsening cellulitis of LE Cellulitis Wound care consult - help appreciated ID consult - Dr. Oliver - help appreciated Wound cultures grew gram negative maddison, gram positive cocci Arterial duplex scan shows left side 50-75% stenosis of left distal superficial femoral artery Cefepime 2 gm Q12H Vancomycin 1gm IVPB Q24H [facility] Cardio consult - Dr. Arnett - help appreciated Cardio recommends pharmacological stress test and CTA of abdominal aorta and LE B/L Echo from 03/24 shows mild-moderate reduced LV function with EF of 37%, dilated LA, mild TR and diastolic dysfunction Patient received PICC line today so will get CTA today History of PE INR today is 2.2 Warfarin tonight 3 mg Will continue to monitor INR Arthritis Oxycodone/Acetaminophen 5/325mg PO Q6H PRN pain, moderate Prednisone 10mg PO daily Methadone 20mg PO 1400 Methadone 30mg PO 0600 Methadone 30mg PO 2200 Methadone for pain management Neuropathy Elavil 100mg PO daily Gabapentin 300mg PO TID Prophylaxis Lovenox 40mg SC daily Protonix 40mg PO daily All management per Dr. Rocio Markham
--- NOTE | 2017-03-26 12:41 | RAD ---
HISTORY: verify right PICC COMPARISON: Comparison made with prior chest radiograph 07/10/2016 FINDINGS: LUNGS: PLEURA: Interval placement right-sided PICC line tip in the SVC. Bibasilar atelectasis and or infiltrates right greater than left. CARDIOVASCULAR: Cardiomegaly. OSSEOUS STRUCTURES: No significant abnormalities. VISUALIZED UPPER ABDOMEN: Normal. OTHER FINDINGS: None. IMPRESSION: In situ right-sided PICC line as above. Bibasilar atelectasis and or infiltrate right greater than left.
--- NOTE | 2017-03-26 14:41 | CP.PCM.PN ---
Subjective - Date & Time of Evaluation Date of Evaluation: 03/26/17 Time of Evaluation: 08:20 - Subjective Subjective: clinically same Objective - Vital Signs/Intake and Output Vital Signs (last 24 hours): Temp Pulse Resp BP Pulse Ox 98 F 89 23 133/92 H 96 03/26/17 08:00 03/26/17 08:00 03/26/17 08:00 03/26/17 08:00 03/26/17 08:00 Intake and Output: 03/26/17 03/26/17 06:59 18:59 Intake Total 400 Output Total 1700 Balance -1300 - Medications Medications: Current Medications Amitriptyline HCl (Elavil) 100 mg PO DAILY [facility] Last Admin: 03/26/17 10:08 Dose: 100 mg Cyclobenzaprine HCl (Flexeril) 10 mg PO Q8 [facility] Last Admin: 03/26/17 13:32 Dose: 10 mg Enoxaparin Sodium (Lovenox) 80 mg SC Q12 [facility] Gabapentin (Neurontin) 300 mg PO TID [facility] Last Admin: 03/26/17 13:32 Dose: 300 mg Vancomycin/Sodium Chloride (Vancocin) 1 gm in 200 mls @ 133 mls/hr IVPB Q24H [facility] Stop: 03/28/17 17:01 Last Admin: 03/25/17 17:00 Dose: Not Given Cefepime HCl (Maxipime Iv 2 Gm Premix) 2 gm in 100 mls @ 200 mls/hr IVPB Q12H [facility] Stop: 03/30/17 21:01 Last Admin: 03/26/17 10:10 Dose: Not Given Sodium Chloride (Sodium Chloride 0.9%) 1,000 mls @ 50 mls/hr IV .Q20H [facility] Methadone HCl (Methadone) 20 mg PO 1400 [facility] Last Admin: 03/26/17 13:32 Dose: 20 mg Methadone HCl (Methadone) 30 mg PO 0600 [facility] Last Admin: 03/26/17 08:09 Dose: Not Given Methadone HCl (Methadone) 30 mg PO 2200 [facility] Last Admin: 03/25/17 21:07 Dose: 30 mg Multivitamins (Hexavitamin) 1 tab PO DAILY [facility] Last Admin: 03/26/17 10:10 Dose: 1 tab Pantoprazole Sodium (Protonix Ec Tab) 40 mg PO DAILY [facility] Last Admin: 03/26/17 10:08 Dose: 40 mg Prednisone (Prednisone Tab) 10 mg PO DAILY [facility] Last Admin: 03/26/17 10:10 Dose: 10 mg Venlafaxine HCl (Effexor Xr) 37.5 mg PO DAILY [facility] Last Admin: 03/26/17 10:08 Dose: 37.5 mg - Labs Labs: 03/26/17 08:25 03/26/17 08:25 PT 25.5 SECONDS (9.7-12.2) H D 03/26/17 08:25 INR 2.2 D 03/26/17 08:25 APTT 42 SECONDS (21-34) H 03/22/17 14:11 - Constitutional Appears: Well - Head Exam Head Exam: ATRAUMATIC, NORMAL INSPECTION, NORMOCEPHALIC - Eye Exam Eye Exam: EOMI, Normal appearance, PERRL Pupil Exam: NORMAL ACCOMODATION, PERRL - ENT Exam ENT Exam: Mucous Membranes Moist, Normal Exam - Neck Exam Neck Exam: Full ROM, Normal Inspection. absent: Lymphadenopathy - Respiratory Exam Respiratory Exam: Decreased Breath Sounds - Cardiovascular Exam Cardiovascular Exam: REGULAR RHYTHM, +S1, +S2 - GI/Abdominal Exam GI & Abdominal Exam: Soft, Diminished Bowel Sounds - Rectal Exam Rectal Exam: Deferred Assessment and Plan (1) Alcohol abuse Status: Acute (2) Alcohol dependence Status: Acute (3) Anemia Status: Acute (4) Bilateral leg ulcer Status: Acute (5) Cellulitis Status: Acute (6) Closed head injury Status: Acute (7) Elevated INR Status: Acute (8) Eyebrow laceration Status: Acute (9) Finger laceration Status: Acute (10) Joint pain Status: Acute (11) Nailbed laceration, finger Status: Acute (12) Open fracture of tuft of distal phalanx of finger Status: Acute (13) Pulmonary embolism, bilateral Status: Acute (14) Recurrent falls Status: Acute (15) Stasis ulcer of left lower extremity Status: Acute (16) Arthritis Status: Chronic (17) COPD (chronic obstructive pulmonary disease) Status: Chronic (18) Chronic pain Status: Chronic (19) Drug abuse and dependence Status: Chronic (20) Rheumatoid arthritis flare Status: Chronic - Assessment and Plan (Free Text) Plan: No acute event overnight Wound care Culture reports noted angio on Wednesday Vancomycin Cefepime Lovenox Elavil ID on board Dr. Arnett
[2017-03-26] MEDS: Sodium Chloride 0.9% 1,000 ML IV SCH (16:19)
[2017-03-26] MEDS: Vancomycin 1 gm/NS 200 ml 1 GM/200 ML BAG IVPB SCH (16:19)
--- NOTE | 2017-03-26 16:47 | CT ---
PROCEDURE: CT Angiography Abdomen, Pelvis and Lower Extremity with Contrast HISTORY: check for PAD COMPARISON: None. TECHNIQUE: Technique: CT angiography of the abdomen, pelvis and bilateral lower extremities performed in the arterial phase of enhancement. Coronal and sagittal reformats, and well as rotating MIP images of the vessels generated at the workstation. Intravenous contrast dose: Visipaque 320, 150 cc Radiation dose: Total exam DLP = 2505 mGy-cm. This CT exam was performed using one or more of the following dose reduction techniques: Automated exposure control, adjustment of the mA and/or kV according to patient size, and/or use of iterative reconstruction technique. FINDINGS: CT ANGIOGRAPHY: ABDOMINAL AORTA:: No significant stenosis. Mild to moderate atherosclerotic plaque associated. No aneurysm formation. MAJOR AORTIC BRANCHES: Celiac [place]: Unremarkable. Superior mesenteric artery: Unremarkable. Inferior mesenteric artery: Unremarkable. Renal arteries: Mild bilateral atherosclerotic plaque, without significant stenosis. 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 Right External Iliac: Unremarkable. Right Internal Iliac: Unremarkable. Left Common Iliac: Mildly on aneurysmal measuring 1.4 cm. Left External Iliac: Unremarkable. Left Internal Iliac: Unremarkable. RIGHT LOWER EXTREMITY ARTERIES: Right Common Femoral: Trace atherosclerosis. Right Superficial Femoral: Trace atherosclerosis. Right Profunda Femoris: Unremarkable. Right Popliteal:Mildly ectatic but widely patent. . Right Anterior Tibial: Unremarkable. Right Tibioperoneal Trunk: Widely patent. Right Posterior Tibial: Solitary moderate segmental stenosis proximally, otherwise widely patent. Right Peroneal: Moderate to severely diseased distally appearing thready at the distal segment. Right dorsalis pedis : Unremarkable. LEFT LOWER EXTREMITY ARTERIES: Left Common Femoral: Trace atherosclerosis. Left Superficial Femoral: Trace atherosclerosis. Left Profunda Femoris: Unremarkable. Left Popliteal: Mildly ectatic but widely patent. . Left Anterior Tibial: Unremarkable. Left Tibioperoneal Trunk: Mildly stenotic proximally. Left Posterior Tibial: A few mid segmental moderate stenoses are identified with remainder widely patent. Left Peroneal: Few high-grade mid and distal segmental stenoses are questioned, otherwise widely patent. Left Dorsalis pedis: Moderate to severely stenosed. NON-ANGIOGRAPHIC ASPECT OF THE EXAM: LOWER THORAX: Cardiomegaly. Bilateral basilar dependent atelectasis. LIVER: Unremarkable. No gross lesion or ductal dilatation. GALLBLADDER AND BILE DUCTS: Distended but otherwise unremarkable. PANCREAS: Unremarkable. No gross lesion or ductal dilatation. SPLEEN: Unremarkable. ADRENALS: Unremarkable. No mass. KIDNEYS AND URETERS: Unremarkable. No hydronephrosis. No solid mass. STOMACH AND BOWEL: Prominent retained fecal material seen throughout the colon which may reflect constipation. APPENDIX: Normal. PERITONEUM: Unremarkable. No free fluid. No free air. LYMPH NODES: Unremarkable. No enlarged lymph nodes. BLADDER: Urinary bladder is poorly evaluated due to decompression. Mural thickening is not excluded completely. . REPRODUCTIVE: Question prior prostatectomy. Clinically correlate. . BONES: Advanced multilevel thoracolumbar spondylosis. Moderate degenerative hip and sacroiliac joint changes OTHER FINDINGS: None. IMPRESSION: Widely patent aortic iliofemoral system with essentially three-vessel runoff identified bilaterally though better at the right than left lower extremities. Please see discussion above.
--- NOTE | 2017-03-26 17:31 | CP.PCM.PN ---
Subjective - Date & Time of Evaluation Date of Evaluation: 03/26/17 Time of Evaluation: 08:00 - Subjective Subjective: events noted wounds same for angio wednesday rx renewed Objective - Vital Signs/Intake and Output Vital Signs (last 24 hours): Temp Pulse Resp BP Pulse Ox 98 F 89 23 133/92 H 96 03/26/17 08:00 03/26/17 08:00 03/26/17 08:00 03/26/17 08:00 03/26/17 08:00 Intake and Output: 03/26/17 03/26/17 06:59 18:59 Intake Total 400 Output Total 1700 Balance -1300 - Medications Medications: Current Medications Amitriptyline HCl (Elavil) 100 mg PO DAILY [facility] Last Admin: 03/26/17 10:08 Dose: 100 mg Cyclobenzaprine HCl (Flexeril) 10 mg PO Q8 [facility] Last Admin: 03/26/17 13:32 Dose: 10 mg Enoxaparin Sodium (Lovenox) 80 mg SC Q12 [facility] Gabapentin (Neurontin) 300 mg PO TID [facility] Last Admin: 03/26/17 17:01 Dose: 300 mg Vancomycin/Sodium Chloride (Vancocin) 1 gm in 200 mls @ 133 mls/hr IVPB Q24H [facility] Stop: 03/28/17 17:01 Last Admin: 03/26/17 16:19 Dose: 133 mls/hr Cefepime HCl (Maxipime Iv 2 Gm Premix) 2 gm in 100 mls @ 200 mls/hr IVPB Q12H [facility] Stop: 03/30/17 21:01 Last Admin: 03/26/17 10:10 Dose: Not Given Sodium Chloride (Sodium Chloride 0.9%) 1,000 mls @ 50 mls/hr IV .Q20H [facility] Last Admin: 03/26/17 16:19 Dose: 50 mls/hr Methadone HCl (Methadone) 20 mg PO 1400 [facility] Last Admin: 03/26/17 13:32 Dose: 20 mg Methadone HCl (Methadone) 30 mg PO 0600 [facility] Last Admin: 03/26/17 08:09 Dose: Not Given Methadone HCl (Methadone) 30 mg PO 2200 [facility] Last Admin: 03/25/17 21:07 Dose: 30 mg Multivitamins (Hexavitamin) 1 tab PO DAILY [facility] Last Admin: 03/26/17 10:10 Dose: 1 tab Pantoprazole Sodium (Protonix Ec Tab) 40 mg PO DAILY [facility] Last Admin: 03/26/17 10:08 Dose: 40 mg Prednisone (Prednisone Tab) 10 mg PO DAILY [facility] Last Admin: 03/26/17 10:10 Dose: 10 mg Venlafaxine HCl (Effexor Xr) 37.5 mg PO DAILY [facility] Last Admin: 03/26/17 10:08 Dose: 37.5 mg - Labs Labs: 03/26/17 08:25 03/26/17 08:25 PT 25.5 SECONDS (9.7-12.2) H D 03/26/17 08:25 INR 2.2 D 03/26/17 08:25 APTT 42 SECONDS (21-34) H 03/22/17 14:11 - Constitutional Appears: Non-toxic, Chronically Ill - Head Exam Head Exam: NORMOCEPHALIC - Eye Exam Eye Exam: PERRL - ENT Exam ENT Exam: Mucous Membranes Dry, Normal External Ear Exam - Neck Exam Neck Exam: absent: Lymphadenopathy - Respiratory Exam Respiratory Exam: Decreased Breath Sounds - Cardiovascular Exam Cardiovascular Exam: REGULAR RHYTHM - GI/Abdominal Exam GI & Abdominal Exam: Distended, Soft - Exam Exam: NORMAL INSPECTION - Extremities Exam Extremities Exam: absent: Pedal Edema - Back Exam Back Exam: absent: CVA tenderness (L), CVA tenderness (R) - Neurological Exam Neurological Exam: Alert, Awake Assessment and Plan (1) Bilateral leg ulcer Status: Acute (2) Cellulitis Status: Acute (3) Stasis ulcer of left lower extremity Status: Acute - Assessment and Plan (Free Text) Assessment: cont iv rx for angio wednesday may need bypass
[2017-03-26] MEDS: Enoxaparin 80 mg Syringe SC SCH (21:21)
[2017-03-27] MEDS: Sodium Chloride 0.9% 1,000 ML IV SCH (05:33)
--- NOTE | 2017-03-27 09:26 | CP.PCM.PN ---
Subjective - Date & Time of Evaluation Date of Evaluation: 03/27/17 Time of Evaluation: 07:10 - Subjective Subjective: Patient seen and examined at bedside this AM. NAEO. Patient denies any pain, SOB , CP or any other complaints or concerns. Dressings are being changed by wound care nursing Objective - Vital Signs/Intake and Output Vital Signs (last 24 hours): Temp Pulse Resp BP Pulse Ox 97.7 F 84 20 141/90 96 03/27/17 07:49 03/27/17 07:49 03/27/17 07:49 03/27/17 07:49 03/27/17 07:49 Intake and Output: 03/27/17 03/27/17 06:59 18:59 Intake Total 1050 Balance 1050 - Medications Medications: Current Medications Amitriptyline HCl (Elavil) 100 mg PO DAILY [facility] Last Admin: 03/26/17 10:08 Dose: 100 mg Cyclobenzaprine HCl (Flexeril) 10 mg PO Q8 [facility] Last Admin: 03/26/17 21:19 Dose: 10 mg Enoxaparin Sodium (Lovenox) 80 mg SC Q12 [facility] Last Admin: 03/26/17 21:21 Dose: 80 mg Gabapentin (Neurontin) 300 mg PO TID [facility] Last Admin: 03/26/17 17:01 Dose: 300 mg Vancomycin/Sodium Chloride (Vancocin) 1 gm in 200 mls @ 133 mls/hr IVPB Q24H [facility] Stop: 03/28/17 17:01 Last Admin: 03/26/17 16:19 Dose: 133 mls/hr Cefepime HCl (Maxipime Iv 2 Gm Premix) 2 gm in 100 mls @ 200 mls/hr IVPB Q12H [facility] Stop: 03/30/17 21:01 Last Admin: 03/26/17 21:19 Dose: 200 mls/hr Sodium Chloride (Sodium Chloride 0.9%) 1,000 mls @ 50 mls/hr IV .Q20H [facility] Last Admin: 03/27/17 05:33 Dose: Not Given Methadone HCl (Methadone) 30 mg PO 0600 [facility] Last Admin: 03/27/17 05:38 Dose: 30 mg Methadone HCl (Methadone) 30 mg PO 2200 [facility] Last Admin: 03/26/17 21:19 Dose: 30 mg Methadone HCl (Methadone) 20 mg PO DAILY [facility] Multivitamins (Hexavitamin) 1 tab PO DAILY [facility] Last Admin: 03/26/17 10:10 Dose: 1 tab Pantoprazole Sodium (Protonix Ec Tab) 40 mg PO DAILY [facility] Last Admin: 03/26/17 10:08 Dose: 40 mg Prednisone (Prednisone Tab) 10 mg PO DAILY [facility] Last Admin: 03/26/17 10:10 Dose: 10 mg Venlafaxine HCl (Effexor Xr) 37.5 mg PO DAILY [facility] Last Admin: 03/26/17 10:08 Dose: 37.5 mg - Labs Labs: 03/26/17 08:25 03/26/17 08:25 PT 25.5 SECONDS (9.7-12.2) H D 03/26/17 08:25 INR 2.2 D 03/26/17 08:25 APTT 42 SECONDS (21-34) H 03/22/17 14:11 - Constitutional Appears: Well, Non-toxic, No Acute Distress - Head Exam Head Exam: ATRAUMATIC, NORMOCEPHALIC - Eye Exam Eye Exam: Normal appearance. absent: Conjunctival injection, Scleral icterus - ENT Exam ENT Exam: Mucous Membranes Moist, Normal Oropharynx - Respiratory Exam Respiratory Exam: absent: Accessory Muscle Use, Respiratory Distress, NORMAL BREATHING PATTERN - GI/Abdominal Exam GI & Abdominal Exam: Soft. absent: Distended, Tenderness - Extremities Exam Additional comments: BL lower leg chronic skin changes with dressing placed by wound care intact with moderate serous saturation - Neurological Exam Neurological Exam: Alert, Awake, Oriented x3 - Psychiatric Exam Psychiatric exam: Normal Affect, Normal Mood - Skin Skin Exam: Dry, Normal Color, Warm Assessment and Plan - Assessment and Plan (Free Text) Assessment: 57M w/B/L LE stasis ulcers w/non healing wounds- stable CTA: Severe stenosis of the R peroneal artery and moderate stenosis fo the left posterior tibialis, peroneal, and dorsalis pedis arteries Plan: Plan for angiocatheterization on Wednesday afternoon Wound care per wound care nursing--much appreciated Cont Abx, appropriate anti-coagulation Primary management per the medical attending DW Dr. Jed Espitia, PGY2
[2017-03-27] MEDS: Cefepime IV 2 gm in Dextrose 2 GM/100 ML BAG IVPB SCH ×2 (09:32→21:06)
[2017-03-27] MEDS: Pantoprazole 40 mg EC Tab PO SCH (09:33)
[2017-03-27] MEDS: Multiple Vitamins Tab PO SCH (09:33)
[2017-03-27] MEDS: Venlafaxine 37.5 mg ER Cap PO SCH (09:34)
[2017-03-27] MEDS: Enoxaparin 80 mg Syringe SC SCH ×2 (09:34→21:07)
[2017-03-27 12:01] LABS: BASO % 0.7 % (0.0-2.0); EOS # 0.1 K/uL (0.0-0.7); EOS % 1.9 % (0.0-4.0); HEMATOCRIT 33.2 % (35.0-51.0); LYMPH # 1.9 K/uL (1.0-4.3); LYMPH % 27.9 % (20.0-40.0); MEAN CORPUSCULAR HEMOGLOBIN 28.4 pg (27.0-31.0); MEAN CORPUSCULAR HGB CONC 32.6 g/dL (33.0-37.0); MEAN PLATELET VOLUME 8.5 fL (7.2-11.7); MONO # 0.5 K/uL (0.0-0.8); MONO % 7.6 % (0.0-10.0); NRBC % 0.2 % (0.0-2.0)
[2017-03-27 12:19] LABS: CHLORIDE 97 mmol/L (98-107); POTASSIUM 3.4 mmol/L (3.6-5.2); SODIUM 139 mmol/L (132-148)
[2017-03-27 12:22] LABS: ALB/GLOB RATIO 0.8 (1.0-2.1); ALKALINE PHOSPHATASE 70 U/L (38-126); ALT/SGPT 22 U/L (21-72); AST/SGOT 26 U/L (17-59); BILIRUBIN,TOTAL 0.4 mg/dL (0.2-1.3); BLOOD UREA NITROGEN 13 mg/dL (9-20); CALCIUM 8.3 mg/dl (8.6-10.4); CARBON DIOXIDE 29 mmol/L (22-30); GFR AFRICAN-AMERICAN > 60; GLUCOSE,RANDOM 67 mg/dL (75-110); TOTAL PROTEIN 7.6 g/dL (6.3-8.3)
[2017-03-27 12:46] LABS: INR 1.7
--- NOTE | 2017-03-27 13:09 | CP.PCM.PN ---
Subjective - Date & Time of Evaluation Date of Evaluation: 03/27/17 Time of Evaluation: 08:20 - Subjective Subjective: clinically same Objective - Vital Signs/Intake and Output Vital Signs (last 24 hours): Temp Pulse Resp BP Pulse Ox 97.7 F 84 20 141/90 96 03/27/17 07:49 03/27/17 07:49 03/27/17 07:49 03/27/17 07:49 03/27/17 07:49 Intake and Output: 03/27/17 03/27/17 06:59 18:59 Intake Total 1050 Balance 1050 - Medications Medications: Current Medications Amitriptyline HCl (Elavil) 100 mg PO DAILY [facility] Last Admin: 03/27/17 09:34 Dose: 100 mg Cyclobenzaprine HCl (Flexeril) 10 mg PO Q8 [facility] Last Admin: 03/26/17 21:19 Dose: 10 mg Enoxaparin Sodium (Lovenox) 80 mg SC Q12 [facility] Last Admin: 03/27/17 09:34 Dose: 80 mg Gabapentin (Neurontin) 300 mg PO TID [facility] Last Admin: 03/27/17 09:33 Dose: 300 mg Vancomycin/Sodium Chloride (Vancocin) 1 gm in 200 mls @ 133 mls/hr IVPB Q24H [facility] Stop: 03/28/17 17:01 Last Admin: 03/26/17 16:19 Dose: 133 mls/hr Cefepime HCl (Maxipime Iv 2 Gm Premix) 2 gm in 100 mls @ 200 mls/hr IVPB Q12H [facility] Stop: 03/30/17 21:01 Last Admin: 03/27/17 09:32 Dose: 200 mls/hr Sodium Chloride (Sodium Chloride 0.9%) 1,000 mls @ 50 mls/hr IV .Q20H [facility] Last Admin: 03/27/17 05:33 Dose: Not Given Methadone HCl (Methadone) 30 mg PO 0600 [facility] Last Admin: 03/27/17 05:38 Dose: 30 mg Methadone HCl (Methadone) 30 mg PO 2200 [facility] Last Admin: 03/26/17 21:19 Dose: 30 mg Methadone HCl (Methadone) 20 mg PO DAILY [facility] Last Admin: 03/27/17 09:33 Dose: 20 mg Multivitamins (Hexavitamin) 1 tab PO DAILY [facility] Last Admin: 03/27/17 09:33 Dose: 1 tab Pantoprazole Sodium (Protonix Ec Tab) 40 mg PO DAILY [facility] Last Admin: 03/27/17 09:33 Dose: 40 mg Prednisone (Prednisone Tab) 10 mg PO DAILY [facility] Last Admin: 03/27/17 09:33 Dose: 10 mg Venlafaxine HCl (Effexor Xr) 37.5 mg PO DAILY [facility] Last Admin: 03/27/17 09:34 Dose: 37.5 mg - Labs Labs: 03/27/17 11:00 03/27/17 11:00 PT 19.6 SECONDS (9.7-12.2) H D 03/27/17 11:00 INR 1.7 D 03/27/17 11:00 APTT 42 SECONDS (21-34) H 03/22/17 14:11 - Constitutional Appears: Well - Head Exam Head Exam: ATRAUMATIC, NORMAL INSPECTION, NORMOCEPHALIC - Eye Exam Eye Exam: EOMI, Normal appearance, PERRL Pupil Exam: NORMAL ACCOMODATION, PERRL - ENT Exam ENT Exam: Mucous Membranes Moist, Normal Exam - Neck Exam Neck Exam: Full ROM, Normal Inspection. absent: Lymphadenopathy - Respiratory Exam Respiratory Exam: Decreased Breath Sounds - Cardiovascular Exam Cardiovascular Exam: REGULAR RHYTHM, +S1, +S2 - GI/Abdominal Exam GI & Abdominal Exam: Soft, Diminished Bowel Sounds - Rectal Exam Rectal Exam: Deferred Assessment and Plan (1) Alcohol abuse Status: Acute (2) Alcohol dependence Status: Acute (3) Anemia Status: Acute (4) Bilateral leg ulcer Status: Acute (5) Cellulitis Status: Acute (6) Closed head injury Status: Acute (7) Elevated INR Status: Acute (8) Eyebrow laceration Status: Acute (9) Finger laceration Status: Acute (10) Joint pain Status: Acute (11) Nailbed laceration, finger Status: Acute (12) Open fracture of tuft of distal phalanx of finger Status: Acute (13) Pulmonary embolism, bilateral Status: Acute (14) Recurrent falls Status: Acute (15) Stasis ulcer of left lower extremity Status: Acute (16) Arthritis Status: Chronic (17) COPD (chronic obstructive pulmonary disease) Status: Chronic (18) Chronic pain Status: Chronic (19) Drug abuse and dependence Status: Chronic (20) Rheumatoid arthritis flare Status: Chronic - Assessment and Plan (Free Text) Plan: Continue same Patient clinically better Wound care Denies any acute event overnight Continue vancomycin Cefepime Lovenox Methadone Vascular surgeon on board
[2017-03-27] MEDS: Vancomycin 1 gm/NS 200 ml 1 GM/200 ML BAG IVPB SCH (17:34)
[2017-03-27] MEDS ORDERED: Potassium Chloride 10 mEq ER Tab PO STA (20:08)
--- NOTE | 2017-03-28 02:08 | CP.PCM.PN ---
Subjective - Date & Time of Evaluation Date of Evaluation: 03/28/17 Time of Evaluation: 05:40 - Subjective Subjective: Patient s/e at bedside this AM. NAEO. Patient reports BL LE pain at his baseline but denies any fevers, chills, chest pain, SOB, or any other symptoms. Objective - Vital Signs/Intake and Output Vital Signs (last 24 hours): Temp Pulse Resp BP Pulse Ox 98.1 F 103 H 20 143/82 96 03/28/17 00:00 03/28/17 00:00 03/28/17 00:00 03/28/17 00:00 03/28/17 00:00 Intake and Output: 03/27/17 03/28/17 18:59 06:59 Intake Total 850 800 Balance 850 800 - Medications Medications: Current Medications Amitriptyline HCl (Elavil) 100 mg PO DAILY [facility] Last Admin: 03/27/17 09:34 Dose: 100 mg Cyclobenzaprine HCl (Flexeril) 10 mg PO Q8 [facility] Last Admin: 03/27/17 21:06 Dose: 10 mg Enoxaparin Sodium (Lovenox) 80 mg SC Q12 [facility] Last Admin: 03/27/17 21:07 Dose: 80 mg Gabapentin (Neurontin) 300 mg PO TID [facility] Last Admin: 03/27/17 17:33 Dose: 300 mg Vancomycin/Sodium Chloride (Vancocin) 1 gm in 200 mls @ 133 mls/hr IVPB Q24H [facility] Stop: 03/28/17 17:01 Last Admin: 03/27/17 17:34 Dose: 133 mls/hr Cefepime HCl (Maxipime Iv 2 Gm Premix) 2 gm in 100 mls @ 200 mls/hr IVPB Q12H [facility] Stop: 03/30/17 21:01 Last Admin: 03/27/17 21:06 Dose: 200 mls/hr Sodium Chloride (Sodium Chloride 0.9%) 1,000 mls @ 50 mls/hr IV .Q20H [facility] Last Admin: 03/27/17 05:33 Dose: Not Given Methadone HCl (Methadone) 30 mg PO 0600 [facility] Last Admin: 03/27/17 05:38 Dose: 30 mg Methadone HCl (Methadone) 30 mg PO 2200 [facility] Last Admin: 03/27/17 21:06 Dose: 30 mg Methadone HCl (Methadone) 20 mg PO DAILY [facility] Last Admin: 03/27/17 09:33 Dose: 20 mg Multivitamins (Hexavitamin) 1 tab PO DAILY [facility] Last Admin: 03/27/17 09:33 Dose: 1 tab Pantoprazole Sodium (Protonix Ec Tab) 40 mg PO DAILY [facility] Last Admin: 03/27/17 09:33 Dose: 40 mg Prednisone (Prednisone Tab) 10 mg PO DAILY [facility] Last Admin: 03/27/17 09:33 Dose: 10 mg Venlafaxine HCl (Effexor Xr) 37.5 mg PO DAILY [facility] Last Admin: 03/27/17 09:34 Dose: 37.5 mg - Labs Labs: 03/27/17 11:00 03/27/17 11:00 PT 19.6 SECONDS (9.7-12.2) H D 03/27/17 11:00 INR 1.7 D 03/27/17 11:00 APTT 42 SECONDS (21-34) H 03/22/17 14:11 - Constitutional Appears: Non-toxic, No Acute Distress - Head Exam Head Exam: ATRAUMATIC, NORMOCEPHALIC - Eye Exam Eye Exam: Normal appearance. absent: Conjunctival injection, Scleral icterus - ENT Exam ENT Exam: Mucous Membranes Moist, Normal Oropharynx - Respiratory Exam Respiratory Exam: NORMAL BREATHING PATTERN. absent: Accessory Muscle Use, Respiratory Distress - Cardiovascular Exam Cardiovascular Exam: RRR - GI/Abdominal Exam GI & Abdominal Exam: Soft. absent: Distended, Tenderness - Extremities Exam Additional comments: chronically thickened BL lower leg skin, wounds covered in bandages moderately saturated with serous fluid, toes warm to the touch - Neurological Exam Neurological Exam: Alert, Awake, Oriented x3 - Psychiatric Exam Psychiatric exam: Normal Affect, Normal Mood - Skin Skin Exam: Normal Color, Warm Assessment and Plan - Assessment and Plan (Free Text) Assessment: 57M w/B/L LE stasis ulcers w/non healing wounds Plan: Plan for angiocatheterization tomorrow afternoon Continue to trend INR Keep NPO after midnight except meds Wound care per wound care nursing--much appreciated Cont Abx Hold Wednesday AM dose of lovenox Primary management per the medical attending Discussed with Dr. Jed Espitia, PGY2
[2017-03-28] MEDS: Sodium Chloride 0.9% 1,000 ML IV SCH ×3 (03:50→21:52)
[2017-03-28 07:37] LABS: ALB/GLOB RATIO 0.9 (1.0-2.1); ALKALINE PHOSPHATASE 68 U/L (38-126); ALT/SGPT 25 U/L (21-72); AST/SGOT 18 U/L (17-59); BILIRUBIN,TOTAL 0.5 mg/dL (0.2-1.3); BLOOD UREA NITROGEN 13 mg/dL (9-20); CALCIUM 8.2 mg/dl (8.6-10.4); CARBON DIOXIDE 27 mmol/L (22-30); CHLORIDE 100 mmol/L (98-107); GFR AFRICAN-AMERICAN > 60; GLUCOSE,RANDOM 76 mg/dL (75-110); POTASSIUM 4.2 mmol/L (3.6-5.2); SODIUM 142 mmol/L (132-148); TOTAL PROTEIN 7.6 g/dL (6.3-8.3)
[2017-03-28 09:04] LABS: INR 1.3
[2017-03-28] MEDS: Multiple Vitamins Tab PO SCH (09:07)
[2017-03-28] MEDS: Pantoprazole 40 mg EC Tab PO SCH (09:08)
[2017-03-28] MEDS: Venlafaxine 37.5 mg ER Cap PO SCH (09:08)
[2017-03-28] MEDS: Enoxaparin 80 mg Syringe SC SCH ×2 (09:08→21:53)
[2017-03-28] MEDS: Cefepime IV 2 gm in Dextrose 2 GM/100 ML BAG IVPB SCH ×2 (09:09→21:51)
[2017-03-28 10:11] LABS: BASO # 0.1 K/uL (0.0-0.2); BASO % 1.1 % (0.0-2.0); EOS # 0.1 K/uL (0.0-0.7); EOS % 1.1 % (0.0-4.0); HEMATOCRIT 33.9 % (35.0-51.0); LYMPH # 1.6 K/uL (1.0-4.3); LYMPH % 21.9 % (20.0-40.0); MEAN CELL VOLUME 88.1 fL (80.0-94.0); MEAN CORPUSCULAR HGB CONC 31.7 g/dL (33.0-37.0); MEAN PLATELET VOLUME 8.4 fL (7.2-11.7); MONO # 0.6 K/uL (0.0-0.8); MONO % 7.4 % (0.0-10.0); NRBC % 0.2 % (0.0-2.0); RED CELL DISTRIBUTION WIDTH 17.1 % (11.5-14.5); WHITE BLOOD COUNT 7.5 K/uL (4.8-10.8)
--- NOTE | 2017-03-28 12:32 | CP.PCM.PN ---
Subjective - Date & Time of Evaluation Date of Evaluation: 03/28/17 Time of Evaluation: 09:20 - Subjective Subjective: clinically same Objective - Vital Signs/Intake and Output Vital Signs (last 24 hours): Temp Pulse Resp BP Pulse Ox 98.1 F 88 20 120/77 96 03/28/17 08:32 03/28/17 08:32 03/28/17 08:32 03/28/17 08:32 03/28/17 08:32 Intake and Output: 03/28/17 03/28/17 06:59 18:59 Intake Total 800 640 Output Total 450 Balance 800 190 - Medications Medications: Current Medications Amitriptyline HCl (Elavil) 100 mg PO DAILY [facility] Last Admin: 03/28/17 09:08 Dose: 100 mg Cyclobenzaprine HCl (Flexeril) 10 mg PO Q8 [facility] Last Admin: 03/28/17 05:04 Dose: 10 mg Enoxaparin Sodium (Lovenox) 80 mg SC Q12 [facility] Last Admin: 03/28/17 09:08 Dose: 80 mg Gabapentin (Neurontin) 300 mg PO TID [facility] Last Admin: 03/28/17 09:08 Dose: 300 mg Vancomycin/Sodium Chloride (Vancocin) 1 gm in 200 mls @ 133 mls/hr IVPB Q24H [facility] Stop: 03/28/17 17:01 Last Admin: 03/27/17 17:34 Dose: 133 mls/hr Cefepime HCl (Maxipime Iv 2 Gm Premix) 2 gm in 100 mls @ 200 mls/hr IVPB Q12H [facility] Stop: 03/30/17 21:01 Last Admin: 03/28/17 09:09 Dose: 200 mls/hr Sodium Chloride (Sodium Chloride 0.9%) 1,000 mls @ 50 mls/hr IV .Q20H [facility] Last Admin: 03/28/17 05:10 Dose: 50 mls/hr Methadone HCl (Methadone) 30 mg PO 0600 [facility] Last Admin: 03/28/17 05:04 Dose: 30 mg Methadone HCl (Methadone) 30 mg PO 2200 [facility] Last Admin: 03/27/17 21:06 Dose: 30 mg Methadone HCl (Methadone) 20 mg PO DAILY@1400 [facility] Multivitamins (Hexavitamin) 1 tab PO DAILY [facility] Last Admin: 07/23/17 09:07 Dose: 1 tab Pantoprazole Sodium (Protonix Ec Tab) 40 mg PO DAILY [facility] Last Admin: 03/28/17 09:08 Dose: 40 mg Prednisone (Prednisone Tab) 10 mg PO DAILY [facility] Last Admin: 03/28/17 09:08 Dose: 10 mg Venlafaxine HCl (Effexor Xr) 37.5 mg PO DAILY [facility] Last Admin: 03/28/17 09:08 Dose: 37.5 mg - Labs Labs: 03/28/17 07:07 03/28/17 07:07 PT 15.2 SECONDS (9.7-12.2) H 03/28/17 08:48 INR 1.3 03/28/17 08:48 APTT 42 SECONDS (21-34) H 03/22/17 14:11 - Constitutional Appears: Well - Head Exam Head Exam: ATRAUMATIC, NORMAL INSPECTION, NORMOCEPHALIC - Eye Exam Eye Exam: EOMI, Normal appearance, PERRL - ENT Exam ENT Exam: Mucous Membranes Moist, Normal Exam - Neck Exam Neck Exam: Full ROM, Normal Inspection. absent: Lymphadenopathy - Respiratory Exam Respiratory Exam: Decreased Breath Sounds - Cardiovascular Exam Cardiovascular Exam: REGULAR RHYTHM, +S1, +S2. absent: Murmur - GI/Abdominal Exam GI & Abdominal Exam: Soft, Diminished Bowel Sounds - Rectal Exam Rectal Exam: Deferred Assessment and Plan (1) Alcohol abuse Status: Acute (2) Alcohol dependence Status: Acute (3) Anemia Status: Acute (4) Bilateral leg ulcer Status: Acute (5) Cellulitis Status: Acute (6) Closed head injury Status: Acute (7) Elevated INR Status: Acute (8) Eyebrow laceration Status: Acute (9) Finger laceration Status: Acute (10) Joint pain Status: Acute (11) Nailbed laceration, finger Status: Acute (12) Open fracture of tuft of distal phalanx of finger Status: Acute (13) Pulmonary embolism, bilateral Status: Acute (14) Recurrent falls Status: Acute (15) Stasis ulcer of left lower extremity Status: Acute (16) Arthritis Status: Chronic (17) COPD (chronic obstructive pulmonary disease) Status: Chronic (18) Chronic pain Status: Chronic (19) Drug abuse and dependence Status: Chronic (20) Rheumatoid arthritis flare Status: Chronic - Assessment and Plan (Free Text) Plan: Bilateral lower limb pain present No acute events Discussed with family Continue as ordered Methadone Continue antibiotics Prednisone DVT prophylaxis Plan angio cath tomorrow N.p.o. after midnight
--- NOTE | 2017-03-28 15:12 | CP.PCM.PN ---
Subjective - Date & Time of Evaluation Date of Evaluation: 03/28/17 Time of Evaluation: 10:00 - Subjective Subjective: severe cellulitis persists iv rx reordered wounds may need further debridement Objective - Vital Signs/Intake and Output Vital Signs (last 24 hours): Temp Pulse Resp BP Pulse Ox 98.1 F 88 20 120/77 96 03/28/17 08:32 03/28/17 08:32 03/28/17 08:32 03/28/17 08:32 03/28/17 08:32 Intake and Output: 03/28/17 03/28/17 06:59 18:59 Intake Total 800 1240 Output Total 450 Balance 800 790 - Medications Medications: Current Medications Amitriptyline HCl (Elavil) 100 mg PO DAILY [facility] Last Admin: 03/28/17 09:08 Dose: 100 mg Cyclobenzaprine HCl (Flexeril) 10 mg PO Q8 [facility] Last Admin: 03/28/17 13:16 Dose: 10 mg Enoxaparin Sodium (Lovenox) 80 mg SC Q12 [facility] Last Admin: 03/28/17 09:08 Dose: 80 mg Gabapentin (Neurontin) 300 mg PO TID [facility] Last Admin: 03/28/17 13:15 Dose: 300 mg Vancomycin/Sodium Chloride (Vancocin) 1 gm in 200 mls @ 133 mls/hr IVPB Q24H [facility] Stop: 03/28/17 17:01 Last Admin: 03/27/17 17:34 Dose: 133 mls/hr Cefepime HCl (Maxipime Iv 2 Gm Premix) 2 gm in 100 mls @ 200 mls/hr IVPB Q12H [facility] Stop: 03/30/17 21:01 Last Admin: 03/28/17 09:09 Dose: 200 mls/hr Sodium Chloride (Sodium Chloride 0.9%) 1,000 mls @ 50 mls/hr IV .Q20H [facility] Last Admin: 03/28/17 05:10 Dose: 50 mls/hr Methadone HCl (Methadone) 30 mg PO 0600 [facility] Last Admin: 03/28/17 05:04 Dose: 30 mg Methadone HCl (Methadone) 30 mg PO 2200 [facility] Last Admin: 03/27/17 21:06 Dose: 30 mg Methadone HCl (Methadone) 20 mg PO DAILY@1400 [facility] Last Admin: 07/23/17 13:16 Dose: 20 mg Multivitamins (Hexavitamin) 1 tab PO DAILY [facility] Last Admin: 03/28/17 09:07 Dose: 1 tab Pantoprazole Sodium (Protonix Ec Tab) 40 mg PO DAILY [facility] Last Admin: 03/28/17 09:08 Dose: 40 mg Prednisone (Prednisone Tab) 10 mg PO DAILY [facility] Last Admin: 03/28/17 09:08 Dose: 10 mg Venlafaxine HCl (Effexor Xr) 37.5 mg PO DAILY [facility] Last Admin: 03/28/17 09:08 Dose: 37.5 mg - Labs Labs: 03/28/17 07:07 03/28/17 07:07 PT 15.2 SECONDS (9.7-12.2) H 03/28/17 08:48 INR 1.3 03/28/17 08:48 APTT 42 SECONDS (21-34) H 03/22/17 14:11 - Constitutional Appears: Non-toxic, Chronically Ill - Head Exam Head Exam: NORMOCEPHALIC - Eye Exam Eye Exam: PERRL. absent: Scleral icterus - ENT Exam ENT Exam: Mucous Membranes Dry, Normal External Ear Exam - Respiratory Exam Respiratory Exam: Decreased Breath Sounds - Cardiovascular Exam Cardiovascular Exam: REGULAR RHYTHM - GI/Abdominal Exam GI & Abdominal Exam: Distended, Soft - Rectal Exam Rectal Exam: Deferred - Exam Exam: NORMAL INSPECTION - Extremities Exam Extremities Exam: Pedal Edema, Tenderness. absent: Calf Tenderness - Back Exam Back Exam: absent: CVA tenderness (L), CVA tenderness (R) - Neurological Exam Neurological Exam: Alert, Awake, Oriented x3 Assessment and Plan (1) Bilateral leg ulcer Status: Acute (2) Cellulitis Status: Acute (3) Stasis ulcer of left lower extremity Status: Acute
[2017-03-28] MEDS: Vancomycin 1 gm/NS 200 ml 1 GM/200 ML BAG IVPB SCH (17:15)
[2017-03-29 07:31] LABS: INR 1.2
[2017-03-29 07:44] LABS: BASO # 0.1 K/uL (0.0-0.2); EOS # 0.1 K/uL (0.0-0.7); EOS % 1.3 % (0.0-4.0); HEMATOCRIT 33.4 % (35.0-51.0); LYMPH # 1.8 K/uL (1.0-4.3); LYMPH % 27.7 % (20.0-40.0); MEAN CELL VOLUME 87.1 fL (80.0-94.0); MEAN CORPUSCULAR HEMOGLOBIN 28.1 pg (27.0-31.0); MEAN CORPUSCULAR HGB CONC 32.3 g/dL (33.0-37.0); MEAN PLATELET VOLUME 7.9 fL (7.2-11.7); MONO # 0.4 K/uL (0.0-0.8); MONO % 6.3 % (0.0-10.0); NRBC % 0.1 % (0.0-2.0); RED CELL DISTRIBUTION WIDTH 17.3 % (11.5-14.5); WHITE BLOOD COUNT 6.4 K/uL (4.8-10.8)
[2017-03-29 08:14] LABS: CHLORIDE 99 mmol/L (98-107)
[2017-03-29 08:15] LABS: POTASSIUM 4.2 mmol/L (3.6-5.2); SODIUM 141 mmol/L (132-148)
[2017-03-29 08:17] LABS: ALB/GLOB RATIO 0.8 (1.0-2.1); ALKALINE PHOSPHATASE 65 U/L (38-126); AST/SGOT 18 U/L (17-59); BILIRUBIN,TOTAL 0.5 mg/dL (0.2-1.3); BLOOD UREA NITROGEN 10 mg/dL (9-20); CARBON DIOXIDE 27 mmol/L (22-30); GFR AFRICAN-AMERICAN > 60; TOTAL PROTEIN 7.5 g/dL (6.3-8.3)
[2017-03-29 08:18] LABS: ALT/SGPT 24 U/L (21-72); CALCIUM 8.4 mg/dl (8.6-10.4); GLUCOSE,RANDOM 85 mg/dL (75-110)
[2017-03-29] MEDS: Cefepime IV 2 gm in Dextrose 2 GM/100 ML BAG IVPB SCH ×2 (08:19→21:57)
[2017-03-29] MEDS: Multiple Vitamins Tab PO SCH (09:19)
[2017-03-29] MEDS: Pantoprazole 40 mg EC Tab PO SCH (09:19)
[2017-03-29] MEDS: Venlafaxine 37.5 mg ER Cap PO SCH (09:20)
--- NOTE | 2017-03-29 11:26 | CP.PCM.PN ---
Subjective - Date & Time of Evaluation Date of Evaluation: 03/29/17 Time of Evaluation: 08:00 - Subjective Subjective: vanco trough ok cellulitis persists Objective - Vital Signs/Intake and Output Vital Signs (last 24 hours): Temp Pulse Resp BP Pulse Ox 98.0 F 88 20 154/97 H 96 03/29/17 08:00 03/29/17 08:00 03/29/17 08:00 03/29/17 08:00 03/29/17 08:00 Intake and Output: 03/29/17 03/29/17 06:59 18:59 Intake Total 430 Output Total 500 Balance -70 - Medications Medications: Current Medications Amitriptyline HCl (Elavil) 100 mg PO DAILY [facility] Last Admin: 03/29/17 09:20 Dose: 100 mg Cyclobenzaprine HCl (Flexeril) 10 mg PO Q8 [facility] Last Admin: 03/29/17 05:53 Dose: 10 mg Enoxaparin Sodium (Lovenox) 80 mg SC Q12 [facility] Last Admin: 03/28/17 21:53 Dose: 80 mg Gabapentin (Neurontin) 300 mg PO TID [facility] Last Admin: 03/29/17 09:19 Dose: 300 mg Cefepime HCl (Maxipime Iv 2 Gm Premix) 2 gm in 100 mls @ 200 mls/hr IVPB Q12H [facility] Stop: 03/30/17 21:01 Last Admin: 03/29/17 08:19 Dose: 200 mls/hr Sodium Chloride (Sodium Chloride 0.9%) 1,000 mls @ 50 mls/hr IV .Q20H [facility] Last Admin: 03/28/17 21:52 Dose: 50 mls/hr Methadone HCl (Methadone) 30 mg PO 0600 [facility] Last Admin: 03/29/17 05:52 Dose: 30 mg Methadone HCl (Methadone) 30 mg PO 2200 [facility] Last Admin: 03/28/17 21:51 Dose: 30 mg Methadone HCl (Methadone) 20 mg PO DAILY@1400 [facility] Last Admin: 03/28/17 13:16 Dose: 20 mg Multivitamins (Hexavitamin) 1 tab PO DAILY [facility] Last Admin: 03/29/17 09:19 Dose: 1 tab Pantoprazole Sodium (Protonix Ec Tab) 40 mg PO DAILY [facility] Last Admin: 03/29/17 09:19 Dose: 40 mg Prednisone (Prednisone Tab) 10 mg PO DAILY [facility] Last Admin: 03/29/17 09:19 Dose: 10 mg Venlafaxine HCl (Effexor Xr) 37.5 mg PO DAILY [facility] Last Admin: 03/29/17 09:20 Dose: 37.5 mg - Labs Labs: 03/29/17 07:12 03/29/17 07:12 PT 13.1 SECONDS (9.7-12.2) H 03/29/17 07:12 INR 1.2 03/29/17 07:12 APTT 33 SECONDS (21-34) 03/29/17 07:12 - Constitutional Appears: Non-toxic - Head Exam Head Exam: NORMOCEPHALIC - Eye Exam Eye Exam: PERRL - ENT Exam ENT Exam: Mucous Membranes Dry - Neck Exam Neck Exam: absent: Lymphadenopathy - Respiratory Exam Respiratory Exam: Decreased Breath Sounds - Cardiovascular Exam Cardiovascular Exam: REGULAR RHYTHM, +S1, +S2 Assessment and Plan (1) Bilateral leg ulcer Status: Acute (2) Cellulitis Status: Acute (3) Stasis ulcer of left lower extremity Status: Acute
[2017-03-29] MEDS ORDERED: Iodixanol 320 MG/ML 200 ML BOTTLE IV ONE (13:55)
[2017-03-29] MEDS ORDERED: Iodixanol 320 MG/ML 100 ML BOTTLE IV ONE (13:55)
[2017-03-29] MEDS ORDERED: Lidocaine 2% Inj (20ml) ONE (14:12)
--- NOTE | 2017-03-29 14:35 | CP.PCM.PN ---
Subjective - Date & Time of Evaluation Date of Evaluation: 03/29/17 Time of Evaluation: 14:28 - Subjective Subjective: PGY2 progress note for Dr. Markham Pt is seen and examined at bedside. No acute events overnight. patient is scheduled for angiocatherization today with Dr. Adkins. Patient denies having any CP, SOB, abd pain, N/v/D/C. Only c/o LE pain. 12 point ROS are negative except for the above mentioned. Objective - Vital Signs/Intake and Output Vital Signs (last 24 hours): Temp Pulse Resp BP Pulse Ox 98.6 F 69 18 179/81 H 96 03/29/17 12:00 03/29/17 12:00 03/29/17 12:00 03/29/17 12:29 03/29/17 12:00 Intake and Output: 03/29/17 03/29/17 06:59 18:59 Intake Total 430 Output Total 500 Balance -70 - Medications Medications: Current Medications Amitriptyline HCl (Elavil) 100 mg PO DAILY [facility] Last Admin: 03/29/17 09:20 Dose: 100 mg Cyclobenzaprine HCl (Flexeril) 10 mg PO Q8 [facility] Last Admin: 03/29/17 05:53 Dose: 10 mg Enoxaparin Sodium (Lovenox) 80 mg SC Q12 [facility] Last Admin: 03/28/17 21:53 Dose: 80 mg Gabapentin (Neurontin) 300 mg PO TID [facility] Last Admin: 03/29/17 09:19 Dose: 300 mg Cefepime HCl (Maxipime Iv 2 Gm Premix) 2 gm in 100 mls @ 200 mls/hr IVPB Q12H [facility] Stop: 03/30/17 21:01 Last Admin: 03/29/17 08:19 Dose: 200 mls/hr Methadone HCl (Methadone) 20 mg PO DAILY@1400 [facility] Last Admin: 03/28/17 13:16 Dose: 20 mg Multivitamins (Hexavitamin) 1 tab PO DAILY [facility] Last Admin: 03/29/17 09:19 Dose: 1 tab Pantoprazole Sodium (Protonix Ec Tab) 40 mg PO DAILY [facility] Last Admin: 03/29/17 09:19 Dose: 40 mg Prednisone (Prednisone Tab) 10 mg PO DAILY [facility] Last Admin: 03/29/17 09:19 Dose: 10 mg Venlafaxine HCl (Effexor Xr) 37.5 mg PO DAILY [facility] Last Admin: 03/29/17 09:20 Dose: 37.5 mg - Labs Labs: 03/29/17 07:12 03/29/17 07:12 PT 13.1 SECONDS (9.7-12.2) H 03/29/17 07:12 INR 1.2 03/29/17 07:12 APTT 33 SECONDS (21-34) 03/29/17 07:12 - Constitutional Appears: Non-toxic, No Acute Distress - Head Exam Head Exam: ATRAUMATIC - Eye Exam Eye Exam: EOMI - ENT Exam ENT Exam: Mucous Membranes Moist - Respiratory Exam Respiratory Exam: Clear to Ausculation Bilateral. absent: Accessory Muscle Use , Rales, Rhonchi, Wheezes, Respiratory Distress - Cardiovascular Exam Cardiovascular Exam: REGULAR RHYTHM, +S1, +S2. absent: Gallop, Rubs, Murmur - GI/Abdominal Exam GI & Abdominal Exam: Soft, Normal Bowel Sounds. absent: Distended, Firm, Guarding, Rigid, Tenderness, Organomegaly - Neurological Exam Neurological Exam: Alert, Awake, Oriented x3 - Psychiatric Exam Psychiatric exam: Normal Affect, Normal Mood - Skin Skin Exam: Dry, Intact, Normal Color, Warm Assessment and Plan - Assessment and Plan (Free Text) Assessment: 57 year old male with past medical history of HTN, DVT, PE on coumadin, fibromyalgia, OA, and RA is admitted for worsening cellulitis of LE. Cellulitis Wound care consult - help appreciated ID consult - Dr. Oliver - help appreciated Wound cultures grew gram negative maddison, gram positive cocci Arterial duplex scan shows left side 50-75% stenosis of left distal superficial femoral artery Cefepime 2 gm Q12H Vancomycin 1gm IVPB Q24H [facility] Patient is scheduled for angiocatherization with Dr. Adkins today Cardio consult - Dr. Arnett - help appreciated CTA showed widely patent aortic iliofemoral system with essentially three- vessel runoff idenified B/L R>L. Echo from 03/24 shows mild-moderate reduced LV function with EF of 37%, dilated LA, mild TR and diastolic dysfunction History of PE Will restart anticoagulation based upon surgery recs. INR will be monitored once patient is restarted on Warfarin. Will need to bridge pt with lovenox as well with coumadin Arthritis Oxycodone/Acetaminophen 5/325mg PO Q6H PRN pain, moderate Prednisone 10mg PO daily Methadone 20mg PO 1400 Methadone 30mg PO 0600 Methadone 30mg PO 2200 Methadone for pain management Neuropathy Elavil 100mg PO daily Gabapentin 300mg PO TID Prophylaxis Lovenox 40mg SC daily Protonix 40mg PO daily All management per Dr. Rocio Markham
--- NOTE | 2017-03-29 15:53 | CP.PCM.PN ---
Subjective - Date & Time of Evaluation Date of Evaluation: 03/29/17 Time of Evaluation: 08:20 - Subjective Subjective: clinically same Objective - Vital Signs/Intake and Output Vital Signs (last 24 hours): Temp Pulse Resp BP Pulse Ox 98.6 F 69 18 179/81 H 96 03/29/17 12:00 03/29/17 12:00 03/29/17 12:00 03/29/17 12:29 03/29/17 12:00 Intake and Output: 03/29/17 03/29/17 06:59 18:59 Intake Total 430 450 Output Total 500 700 Balance -70 -250 - Medications Medications: Current Medications Amitriptyline HCl (Elavil) 100 mg PO DAILY [facility] Last Admin: 03/29/17 09:20 Dose: 100 mg Cyclobenzaprine HCl (Flexeril) 10 mg PO Q8 [facility] Last Admin: 03/29/17 15:09 Dose: 10 mg Enoxaparin Sodium (Lovenox) 80 mg SC Q12 [facility] Last Admin: 03/28/17 21:53 Dose: 80 mg Gabapentin (Neurontin) 300 mg PO TID [facility] Last Admin: 03/29/17 15:08 Dose: 300 mg Cefepime HCl (Maxipime Iv 2 Gm Premix) 2 gm in 100 mls @ 200 mls/hr IVPB Q12H [facility] Stop: 03/30/17 21:01 Last Admin: 03/29/17 08:19 Dose: 200 mls/hr Methadone HCl (Methadone) 20 mg PO DAILY@1400 [facility] Last Admin: 03/29/17 15:09 Dose: 20 mg Multivitamins (Hexavitamin) 1 tab PO DAILY [facility] Last Admin: 03/29/17 09:19 Dose: 1 tab Pantoprazole Sodium (Protonix Ec Tab) 40 mg PO DAILY [facility] Last Admin: 03/29/17 09:19 Dose: 40 mg Prednisone (Prednisone Tab) 10 mg PO DAILY [facility] Last Admin: 03/29/17 09:19 Dose: 10 mg Venlafaxine HCl (Effexor Xr) 37.5 mg PO DAILY [facility] Last Admin: 03/29/17 09:20 Dose: 37.5 mg - Labs Labs: 03/29/17 07:12 03/29/17 07:12 PT 13.1 SECONDS (9.7-12.2) H 03/29/17 07:12 INR 1.2 03/29/17 07:12 APTT 33 SECONDS (21-34) 03/29/17 07:12 - Constitutional Appears: Well - Head Exam Head Exam: ATRAUMATIC, NORMAL INSPECTION, NORMOCEPHALIC - Eye Exam Eye Exam: EOMI, Normal appearance, PERRL Pupil Exam: NORMAL ACCOMODATION, PERRL - ENT Exam ENT Exam: Mucous Membranes Moist, Normal Exam - Neck Exam Neck Exam: Full ROM, Normal Inspection. absent: Lymphadenopathy - Respiratory Exam Respiratory Exam: Decreased Breath Sounds - Cardiovascular Exam Cardiovascular Exam: REGULAR RHYTHM, +S1, +S2 - GI/Abdominal Exam GI & Abdominal Exam: Soft, Diminished Bowel Sounds - Rectal Exam Rectal Exam: Deferred Assessment and Plan (1) Alcohol abuse Status: Acute (2) Alcohol dependence Status: Acute (3) Anemia Status: Acute (4) Bilateral leg ulcer Status: Acute (5) Cellulitis Status: Acute (6) Closed head injury Status: Acute (7) Elevated INR Status: Acute (8) Eyebrow laceration Status: Acute (9) Finger laceration Status: Acute (10) Joint pain Status: Acute (11) Nailbed laceration, finger Status: Acute (12) Open fracture of tuft of distal phalanx of finger Status: Acute (13) Pulmonary embolism, bilateral Status: Acute (14) Recurrent falls Status: Acute (15) Stasis ulcer of left lower extremity Status: Acute (16) Arthritis Status: Chronic (17) COPD (chronic obstructive pulmonary disease) Status: Chronic (18) Chronic pain Status: Chronic (19) Drug abuse and dependence Status: Chronic (20) Rheumatoid arthritis flare Status: Chronic - Assessment and Plan (Free Text) Plan: Patient clinically better No acute events overnight Wound care Scheduled for angiocathet by Dr. Francisco Continue antibiotics Pain meds Consults as advised DVT prophylaxis
[2017-03-29 16:03] VITALS: BP 124/83; PULSE 66; RESP 20; TEMP 97.4; O2SAT 94
== END 2017-03-29 21:00 | DRG 603 ==
LOC: C.ER 13:16 → C.9E 14:37 → C.3T 20:00
PROVIDERS: ADMIT Internal Medicine Nephrology; ATTEND Internal Medicine Nephrology
PROC: 02HV33Z Insertion of Infusion Device into Superior Vena Cava, Percutaneous Approach (ICD-10-PCS; principal; 2017-03-26)
DX: L03.115 Cellulitis of right lower limb (principal); I70.235 Atherosclerosis of native arteries of right leg with ulceration of other part of foot; I70.248 Atherosclerosis of native arteries of left leg with ulceration of other part of lower leg; L97.929 Non-pressure chronic ulcer of unspecified part of left lower leg with unspecified severity; L03.116 Cellulitis of left lower limb; L97.519 Non-pressure chronic ulcer of other part of right foot with unspecified severity; G62.9 Polyneuropathy, unspecified; I10 Essential (primary) hypertension; B96.89 Other specified bacterial agents as the cause of diseases classified elsewhere; G89.29 Other chronic pain; K21.9 Gastro-esophageal reflux disease without esophagitis; M06.9 Rheumatoid arthritis, unspecified; M19.90 Unspecified osteoarthritis, unspecified site; M79.7 Fibromyalgia; M81.0 Age-related osteoporosis without current pathological fracture; R79.1 Abnormal coagulation profile; Z53.8 Procedure and treatment not carried out for other reasons; Z79.01 Long term (current) use of anticoagulants; Z86.711 Personal history of pulmonary embolism; Z86.718 Personal history of other venous thrombosis and embolism